=== PATIENT | female | born 1945 | race Two or more races ===

== ENCOUNTER → 2018-07-24 | Outpatient (CLI) | payer MEDICARE | END | disposition home or self-care (01) | LOC: CFH 13:34 | PROVIDERS: ATTEND Family Medicine | DX: Z12.31 Encounter for screening mammogram for malignant neoplasm of breast (principal); M81.0 Age-related osteoporosis without current pathological fracture; Z78.0 Asymptomatic menopausal state | CPT/HCPCS: 77080; 77067 ==

== ENCOUNTER 2019-01-10 13:09 | Inpatient (IN) | payer MEDICARE ==
[~2019-01-10] VITALS: Ht 167.6 cm; Wt 122.5 kg
--- NOTE | 2019-01-10 13:35 | NUR ---
PT TO ROOM FROM TRIAGE VIA WC. PRIMARY CHINESE SPEAKING, DAUGHTER AT BEDSIDE FOR PIT SUPERVISOR PER PT REQUEST. DAUGHTER RPTS PATIENT WITH INTERMITANT SLURRED SPEECH ON TUESDAY AND ALSO THIS MORNING. CHECKED FSBS =74, SHE GAVE HER SOMETHING TO EAT AND SYMPTOMS IMPROVED ALTHOUGH DAUGHTER SAID THAT SHE HAS NOTICED THAT HER MOTHER IS MORE FORGETFUL. PT C/O FACIAL NUMBNESS AND CALLIE LOWER EXT WEAKNESS. PT ALSO WITH PERIANAL ABCESS. PT ON MONITORS, VSS, PCXR COMPLETED AND PT TO CT WITH TECH TRANSPORT.
[2019-01-10] MEDS ORDERED: PLEASE ENTER ALLERGIES MC SCH (14:25)
[2019-01-10] MEDS ORDERED: CEFAZOLIN PMX 1GM/50ML 50 ML IV ONE (14:30)
[2019-01-10] MEDS ORDERED: VANCOMYCIN PER PHARMACY MC PRN ×2 (14:30→17:30)
[2019-01-10] MEDS ORDERED: CEFAZOLIN PMX 1GM/50ML 50 ML ONE (15:24)
[2019-01-10] MEDS ORDERED: VANCOMYCIN 2,000 MG in SODIUM CHLORIDE 0.9% 500 ML IV ONE (15:30)
[2019-01-10 15:35] LABS: BASOPHILS # (AUTO) 0.03 x10^3/uL (0-0.1); BASOPHILS % (AUTO) 0 % (0-1); EOSINOPHILS # (AUTO) 0.11 x10^3/uL (0-0.4); EOSINOPHILS % (AUTO) 1 % (1-7); LYMPHOCYTES % (AUTO) 14 % (22-44); MD NO; MEAN CORPUSCULAR HEMOGLOBIN 30.4 pg (27.0-34.8); MEAN CORPUSCULAR VOLUME 92.1 fL (80-100); MEAN PLATELET VOLUME 10.3 fL (7.4-10.4); MONOCYTES % (AUTO) 5 % (2-9); NEUTROPHILS # (AUTO) 11.07 x10^3/uL (1.8-6.8); NEUTROPHILS % (AUTO) 80 % (42-75); PLATELET COUNT 252 x10^3/uL (130-400); RED BLOOD COUNT 5.01 x10^6/uL (3.82-5.3); RED CELL DISTRIBUTION WIDTH 14.6 % (9.6-15.2)
[2019-01-10 15:39] LABS: INTERNATIONAL NORMALIZED RATIO 0.9 (0.93-1.1); PROTHROMBIN TIME 9.5 Seconds (9.6-11.5)
[2019-01-10 15:44] LABS: ALANINE AMINOTRANSFERASE 30 U/L (12-78); ALBUMIN 3.4 g/dL (3.4-5.0); ANION GAP 5 mmol/L (5-15); CALCIUM 9.4 mg/dL (8.5-10.1); CHLORIDE 104 mmol/L (98-107)
[2019-01-10 15:48] LABS: ALKALINE PHOSPHATASE 96 U/L (45-117); BILIRUBIN,TOTAL 0.5 mg/dL (0.2-1.0); TOTAL PROTEIN 8.4 g/dL (6.4-8.2); TROPONIN I < 0.015 ng/mL (0.000-0.045)
[2019-01-10 15:50] LABS: MICROSCOPIC NOT IND
[2019-01-10 15:56] LABS: CULTURE INDICATED? NO
--- NOTE | 2019-01-10 16:00 | NUR ---
KRISS, DAUGHTER CELL#[phone]
[2019-01-10] MEDS ORDERED: OMNIPAQUE 350 MG/ML, 100ML BOTTLE ONE (16:33)
[2019-01-10] MEDS ORDERED: MORPHINE SULFATE 4 MG/ML, 1ML ONE ×2 (16:39→21:47)
--- NOTE | 2019-01-10 16:53 | NUR ---
PT MED NOTED FOR PAIN 06/16. VSS. CALL LIGHT W/I REACH
[2019-01-10] MEDS ORDERED: morphine SULFATE 10 MG/ML, 1ML IVPush ONE (17:00)
--- NOTE | 2019-01-10 17:00 | NUR ---
PT OOB AND AMBULATED TO BATHROOM WITH DAUGHTERS STAND BY ASSIST. RTD TO ROOM W/O DIFFICULTY
[2019-01-10] MEDS ORDERED: SITA1TAB PO (17:14)
[2019-01-10] MEDS ORDERED: METO25TA35 PO (17:14)
[2019-01-10] MEDS ORDERED: UMEC1DIS PO (17:14)
[2019-01-10] MEDS ORDERED: ATOR40TA PO (17:14)
[2019-01-10] MEDS ORDERED: AMLO10TA8 PO (17:14)
[2019-01-10] MEDS ORDERED: BUPR75TA6 PO (17:14)
[2019-01-10] MEDS ORDERED: LAMO25TB7 PO (17:14)
[2019-01-10] MEDS ORDERED: CELE200C PO (17:14)
[2019-01-10] MEDS ORDERED: LISI1TAB3 PO (17:14)
[2019-01-10] MEDS ORDERED: TIZA4CAP PO (17:14)
[2019-01-10] MEDS ORDERED: ALEN70TA6 PO (17:14)
[2019-01-10] MEDS ORDERED: ESCI20TA PO (17:14)
[2019-01-10] MEDS ORDERED: INSU200I4 SC (17:18)
--- NOTE | 2019-01-10 17:18 | NUR ---
GURU, ASPEN ADMISSIONS NURSE AT BEDSIDE.
[2019-01-10] MEDS ORDERED: METO200T47 PO (17:21)
[2019-01-10] MEDS ORDERED: ACETAMINOPHEN 325 MG TABLET PO PRN (17:30)
[2019-01-10] MEDS ORDERED: BISACODYL 10 MG SUPP PR PRN (17:30)
[2019-01-10] MEDS ORDERED: DEXTROSE 4 GM TAB.CHEW PO PRN (17:30)
[2019-01-10] MEDS ORDERED: hydrALAzine 20 MG/ML, 1ML IVPush PRN (17:30)
[2019-01-10] MEDS ORDERED: LABETALOL 5MG/ML, 20ML IVPush PRN (17:30)
[2019-01-10] MEDS ORDERED: ONDANSETRON 2MG/ML, 2ML IVPush PRN (17:30)
[2019-01-10] MEDS ORDERED: DEXTROSE 50%, 50ML SYRINGE IVPush PRN (17:30)
[2019-01-10] MEDS ORDERED: LIDODERM 5% PATCH TD PRN (17:30)
[2019-01-10] MEDS ORDERED: GLUCAGON 1 MG IM PRN (17:30)
[2019-01-10] MEDS ORDERED: ONDANSETRON ODT 4 MG PO PRN (17:30)
[2019-01-10] MEDS ORDERED: TIZANIDINE 4MG TABLET PO PRN (17:30)
--- NOTE | 2019-01-10 19:08 | NUR ---
PT MEDICATED FOR 6/10 BACK PAIN. PTS DAUGHTER AT BEDSIDE.
--- NOTE | 2019-01-10 19:15 | NUR ---
BEDSIDE REPORT RECEIVED FROM CALIN ROSAS. ASSUMED CARE OF PT. PT RESTING ON GURNEY. PT JUST MEDICATED FOR PAIN. DAUGHTER AT BEDSIDE. VITALS STABLE. PT MEDICAL HOLD AT THIS TIME.
[2019-01-10] MEDS: SODIUM CHLORIDE 0.9% 1,000 ML IV SCH (19:20)
[2019-01-10] MEDS ORDERED: HEPARIN 5,000 UNITS/ML, 1ML ONE (19:27)
[2019-01-10] MEDS: AMPICILLIN/SULBACTAM 3 GM in SODIUM CHLORIDE 0.9% 100 ML IV SCH (19:57)
[2019-01-10] MEDS: HEPARIN 5,000 UNITS/ML, 1ML SQ SCH (19:58)
--- NOTE | 2019-01-10 20:02 | NUR ---
PT MEDICATED PER EMAR. 5 RIGHTS ADDRESSED. MEAL PROVIDED. VITALS STABLE. WILL CONTINUE TO MONITOR. CALL LIGHT WITHIN REACH
[2019-01-10] MEDS ORDERED: NICOTINE 14MG/24 HR PATCH.TD24 ONE (20:10)
[2019-01-10] MEDS: NICOTINE 14MG/24 HR PATCH.TD24 TD SCH (20:16)
[2019-01-10] MEDS ORDERED: ATORVASTATIN CALCIUM 40 MG PO SCH (21:00)
--- NOTE | 2019-01-10 21:06 | NUR ---
PT RESTING ON FAMILY AVEL[place] AT BEDSIDE. VITALS STABLE. ORDERED HOSPITAL BED FOR THIS PATIENT. WILL CONTINUE TO MONITOR
[2019-01-10] MEDS: MORPHINE SULFATE 4 MG/ML, 1ML IVPush PRN (21:50)
--- NOTE | 2019-01-10 21:53 | NUR ---
PT MEDICATED PER EMAR, FOR PAIN. 5 RIGHTS ADDRESSED.
--- NOTE | 2019-01-10 22:08 | NUR ---
REPORT TO CALIN DALAL
--- NOTE | 2019-01-10 22:10 | NUR ---
SBAR report received from RNEbonie.
--- NOTE | 2019-01-10 22:36 | NUR ---
FSBS 122
[2019-01-10] MEDS: SODIUM CHLORIDE FLUSH 10ML SYR IVF SCH (22:38)
[2019-01-10] MEDS: INSULIN LISPRO 100 UNITS/ML, PEN SQ-INSULIN SCH (22:41)
[2019-01-10] MEDS ORDERED: DOCUSATE 100 MG CAPSULE ONE (22:45)
--- NOTE | 2019-01-10 23:10 | NUR ---
Pt ambulated to bathroom. Family remains at bedside.
--- NOTE | 2019-01-10 23:47 | NUR ---
This RN spoke with pharmacy regarding alendronate. This medication is to be given during the day as the pt must sit up for 30 minutes after admin to reduce risk of esophageal erosion. Pt made aware of this, states that she normally takes it on Wednesdays and took it last 7 days ago. Pt states that she is ok with taking the medication tomorrow and changing her home regimen. Family at bedside is onboard with this plan and this discussion. This RN will pass the information along to the next RN.
--- NOTE | 2019-01-11 00:45 | NUR ---
Pharmacy called regarding meds that were due at 2100, med to be sent now.
--- NOTE | 2019-01-11 01:18 | NUR ---
Pt still unable to sleep. Pt moved to hospital bed with EDT. Pt medicated per JAN.
--- NOTE | 2019-01-11 01:31 | NUR ---
Telephone SBAR report called to Aye LAYTON. Pt and daughter made aware of new room assignment.
[2019-01-11] MEDS: ATORVASTATIN 40 MG TABLET PO SCH ×2 (01:43→20:52)
[2019-01-11] MEDS: DOCUSATE 100 MG CAPSULE PO SCH ×3 (01:43→20:52)
[2019-01-11] MEDS: AMPICILLIN/SULBACTAM 3 GM in SODIUM CHLORIDE 0.9% 100 ML IV SCH ×4 (01:45→21:03)
[2019-01-11] MEDS ORDERED: PHARMACOKINETIC MONITORING MC PRN (02:30)
[2019-01-11] MEDS ORDERED: ALBUTEROL SULFATE 2.5 MG/3 ML NPPB PRN (03:00)
[2019-01-11] MEDS: SODIUM CHLORIDE 0.9% 1,000 ML IV SCH ×2 (03:04→12:52)
[2019-01-11] MEDS: HEPARIN 5,000 UNITS/ML, 1ML SQ SCH ×3 (03:05→19:48)
[2019-01-11 05:50] VITALS: BP 132/70
[2019-01-11] MEDS: METOPROLOL SUCCINATE 25 MG TAB.ER.24H PO SCH (05:52)
[2019-01-11 06:22] LABS: ANION GAP 7 mmol/L (5-15); CHLORIDE 106 mmol/L (98-107)
[2019-01-11 06:23] LABS: BASOPHILS # (AUTO) 0.04 x10^3/uL (0-0.1); BASOPHILS % (AUTO) 0 % (0-1); EOSINOPHILS # (AUTO) 0.07 x10^3/uL (0-0.4); EOSINOPHILS % (AUTO) 1 % (1-7); LYMPHOCYTES # (AUTO) 2.06 x10^3/uL (1-3.4); LYMPHOCYTES % (AUTO) 15 % (22-44); MD NO; MEAN CORPUSCULAR HEMOGLOBIN 30.5 pg (27.0-34.8); MEAN CORPUSCULAR HGB CONC 33.1 g/dL (32.4-35.8); MEAN CORPUSCULAR VOLUME 92.2 fL (80-100); MEAN PLATELET VOLUME 10.2 fL (7.4-10.4); MONOCYTES # (AUTO) 0.69 x10^3/uL (0.2-0.8); MONOCYTES % (AUTO) 5 % (2-9); NEUTROPHILS # (AUTO) 10.71 x10^3/uL (1.8-6.8); NEUTROPHILS % (AUTO) 79 % (42-75); PLATELET COUNT 198 x10^3/uL (130-400); RED BLOOD COUNT 4.31 x10^6/uL (3.82-5.3); RED CELL DISTRIBUTION WIDTH 14.1 % (9.6-15.2)
[2019-01-11 06:24] LABS: CREATININE 0.82 mg/dL (0.55-1.02)
[2019-01-11] MEDS ORDERED: ALENDRONATE 70 MG TABLET PO SCH (06:30)
[2019-01-11 06:47] LABS: HEMOGLOBIN A1C 8.2 % (4.2-6.3)
[2019-01-11] MEDS: INSULIN LISPRO 100 UNITS/ML, PEN SQ-INSULIN SCH ×4 (07:00→22:33)
[2019-01-11 08:00] VITALS: BP 146/71
[2019-01-11] MEDS: POLYETHYLENE GLYCOL 17 GM PACKET PO SCH (08:07)
[2019-01-11] MEDS: ESCITALOPRAM 10MG TABLET PO SCH (08:07)
[2019-01-11] MEDS: SODIUM CHLORIDE FLUSH 10ML SYR IVF SCH ×2 (08:08→20:52)
[2019-01-11] MEDS: AMLODIPINE 10 MG TAB PO SCH (08:08)
[2019-01-11] MEDS: BUPROPION 75 MG TABLET PO SCH (08:09)
[2019-01-11] MEDS: LAMOTRIGINE 25 MG TABLET PO SCH (08:09)
[2019-01-11] MEDS: MORPHINE SULFATE 4 MG/ML, 1ML IVPush PRN (08:32)
[2019-01-11] MEDS: Umeclidinium Brm/Vilanterol Tr (Anoro Ellipta 62.5-25 Mcg MC SCH (08:32)
[2019-01-11 14:00] VITALS: BP 109/60
[2019-01-11] MEDS ORDERED: VANCOMYCIN 2,000 MG in SODIUM CHLORIDE 0.9% 500 ML IV SCH (15:00)
[2019-01-11] MEDS: NICOTINE 14MG/24 HR PATCH.TD24 TD SCH (17:53)
[2019-01-11 19:20] VITALS: BP 129/71
[2019-01-11] MEDS ORDERED: MAGNESIUM CITRATE 300ML ORAL SOL PO PRN (20:30)
[2019-01-12] MEDS: AMPICILLIN/SULBACTAM 3 GM in SODIUM CHLORIDE 0.9% 100 ML IV SCH ×3 (03:23→15:00)
[2019-01-12 03:24] VITALS: BP 143/72
[2019-01-12] MEDS: HEPARIN 5,000 UNITS/ML, 1ML SQ SCH ×2 (03:24→11:30)
[2019-01-12 05:24] LABS: BASOPHILS # (AUTO) 0.04 x10^3/uL (0-0.1); BASOPHILS % (AUTO) 0 % (0-1); EOSINOPHILS # (AUTO) 0.13 x10^3/uL (0-0.4); EOSINOPHILS % (AUTO) 1 % (1-7); LYMPHOCYTES % (AUTO) 13 % (22-44); MD NO; MEAN CORPUSCULAR HGB CONC 33.3 g/dL (32.4-35.8); MEAN CORPUSCULAR VOLUME 93.2 fL (80-100); MEAN PLATELET VOLUME 9.8 fL (7.4-10.4); MONOCYTES # (AUTO) 0.64 x10^3/uL (0.2-0.8); MONOCYTES % (AUTO) 5 % (2-9); NEUTROPHILS # (AUTO) 9.77 x10^3/uL (1.8-6.8); NEUTROPHILS % (AUTO) 80 % (42-75); PLATELET COUNT 189 x10^3/uL (130-400); RED BLOOD COUNT 4.02 x10^6/uL (3.82-5.3)
[2019-01-12 05:41] LABS: ANION GAP 4 mmol/L (5-15); CALCIUM 7.7 mg/dL (8.5-10.1); CHLORIDE 107 mmol/L (98-107); CREATININE 0.84 mg/dL (0.55-1.02)
[2019-01-12] MEDS: METOPROLOL SUCCINATE 25 MG TAB.ER.24H PO SCH (06:05)
[2019-01-12 06:31] VITALS: BP 130/71
[2019-01-12] MEDS: INSULIN LISPRO 100 UNITS/ML, PEN SQ-INSULIN SCH ×2 (07:00→11:36)
[2019-01-12] MEDS: SODIUM CHLORIDE FLUSH 10ML SYR IVF SCH (08:28)
[2019-01-12] MEDS: POLYETHYLENE GLYCOL 17 GM PACKET PO SCH (08:28)
[2019-01-12] MEDS: SODIUM CHLORIDE 0.9% 1,000 ML IV SCH (08:28)
[2019-01-12] MEDS: DOCUSATE 100 MG CAPSULE PO SCH (08:29)
[2019-01-12] MEDS: AMLODIPINE 10 MG TAB PO SCH (08:29)
[2019-01-12] MEDS: LAMOTRIGINE 25 MG TABLET PO SCH (08:29)
[2019-01-12] MEDS: ESCITALOPRAM 10MG TABLET PO SCH (08:29)
[2019-01-12] MEDS: BUPROPION 75 MG TABLET PO SCH (08:29)
[2019-01-12] MEDS: Umeclidinium Brm/Vilanterol Tr (Anoro Ellipta 62.5-25 Mcg MC SCH (09:00)
[2019-01-12 13:27] VITALS: BP 122/72
[2019-01-12] MEDS ORDERED: SULF1TAB24 PO (13:53)
[2019-01-12] MEDS ORDERED: DOXY100T10 PO (13:53)
== END 2019-01-12 15:55 | disposition home health service (06) | DRG 602 ==
LOC: ED 16:39 → EDIP 16:49 → 3NW 01-11 02:06 → DCLOUNGE 01-12 15:41
PROVIDERS: ADMIT Internal Medicine; ATTEND Internal Medicine
PROC: 0T9B70Z Drainage of Bladder with Drainage Device, Via Natural or Artificial Opening (ICD-10-PCS; principal; 2019-01-10)
DX: L03.317 Cellulitis of buttock (principal); G92 Toxic encephalopathy; Z68.41 Body mass index [BMI] 40.0-44.9, adult; E86.0 Dehydration; R27.0 Ataxia, unspecified; I10 Essential (primary) hypertension; E11.649 Type 2 diabetes mellitus with hypoglycemia without coma; Z66 Do not resuscitate; F17.210 Nicotine dependence, cigarettes, uncomplicated; E78.5 Hyperlipidemia, unspecified; J44.9 Chronic obstructive pulmonary disease, unspecified; K59.09 Other constipation; E66.01 Morbid (severe) obesity due to excess calories; I95.9 Hypotension, unspecified; Z90.710 Acquired absence of both cervix and uterus; Z82.3 Family history of stroke; Z82.49 Family history of ischemic heart disease and other diseases of the circulatory system
CPT/HCPCS: 36415; 70450; 70496; 71045; 80048; 80053; 81003; 82962; 83036; 83605; 84484; 85025; 85610; 85730; 87040; 87070; 87077; 87186; 87205; 93005; 96365; 96375; G0378; J0295; J0690; J1644; J3370; Q9967; J1815; J2270; J7030; J7040

== ENCOUNTER 2019-01-18 20:08 | Inpatient (IN) | payer MEDICARE ==
[~2019-01-18] VITALS: Ht 167.6 cm; Wt 110.3 kg
[~2019-01-18 20:08] MED LIST: ALEN70TA6 PO; AMLO10TA8 PO; ATOR40TA PO; BUPR75TA6 PO; CELE200C PO; DOXY100T10 PO; ESCI20TA PO; INSU200I4 SC; LAMO25TB7 PO; LISI1TAB3 PO; METO200T47 PO; METO25TA35 PO; SITA1TAB PO; SULF1TAB24 PO; TIZA4CAP PO; UMEC1DIS PO
[2019-01-18 20:36] LABS: MEAN CORPUSCULAR HEMOGLOBIN 30.2 pg (27.0-34.8); MEAN CORPUSCULAR HGB CONC 32.5 g/dL (32.4-35.8); MEAN CORPUSCULAR VOLUME 92.7 fL (80-100); MEAN PLATELET VOLUME 8.7 fL (7.4-10.4); PLATELET COUNT 334 x10^3/uL (130-400); RED CELL DISTRIBUTION WIDTH 13.8 % (9.6-15.2)
[2019-01-18 20:44] LABS: ALBUMIN 3.1 g/dL (3.4-5.0); ANION GAP 6 mmol/L (5-15); CALCIUM 9.2 mg/dL (8.5-10.1); CHLORIDE 100 mmol/L (98-107)
[2019-01-18 20:47] LABS: ALANINE AMINOTRANSFERASE 28 U/L (12-78); ALKALINE PHOSPHATASE 101 U/L (45-117); BILIRUBIN,TOTAL 0.7 mg/dL (0.2-1.0); CREATININE 1.18 mg/dL (0.55-1.02); TOTAL PROTEIN 7.7 g/dL (6.4-8.2)
--- NOTE | 2019-01-18 20:59 | NUR ---
Pt reports chronic wound to buttock, DC'd from here approx 6 days for same complaint, on ABX, reports worsening of infection. Family at bedside.
[2019-01-18 21:21] LABS: MD YES
[2019-01-18 21:25] LABS: BAND#(MANUAL) 0.12 x10^3/uL; BANDS%(MANUAL) 1 % (0-7); LYMPH#(MANUAL) 3.08 x10^3/uL (1-3.4); LYMPHS% (MANUAL) 25 % (22-44); MONOS#(MANUAL) 0.62 x10^3/uL (0.3-2.7); MONOS% (MANUAL) 5 % (2-9); SEG#(MANUAL) 8.49 x10^3/uL (1.8-6.8); SEGS% (MANUAL) 69 % (42-75)
[2019-01-18 21:26] LABS: <PLATELET ESTIMATE> ADEQUATE; <PLT MORPHOLOGY> NORMAL PLT MORPH; <RBC MORPHOLOGY> NORMAL
--- NOTE | 2019-01-18 21:28 | NUR ---
Awaiting CT results, family remains at bedside.
--- NOTE | 2019-01-18 21:56 | NUR ---
Pt to CT
[2019-01-18] MEDS ORDERED: OMNIPAQUE 350 MG/ML, 100ML BOTTLE ONE (22:09)
[2019-01-18] MEDS ORDERED: VANCOMYCIN 2,000 MG in SODIUM CHLORIDE 0.9% 500 ML IV ONE (22:54)
[2019-01-18] MEDS ORDERED: ONDANSETRON 2MG/ML, 2ML IVPush ONE (23:00)
[2019-01-18] MEDS ORDERED: PIPERACILLIN/TAZO/PMX 3.375GM 50 ML IVPB ONE (23:00)
[2019-01-18] MEDS ORDERED: MORPHINE SULFATE 4 MG/ML, 1ML IVPush PRN ×2 (23:00)
[2019-01-18] MEDS ORDERED: VANCOMYCIN PER PHARMACY IV ONE (23:00)
[2019-01-18] MEDS ORDERED: PIPERACILLIN/TAZO/PMX 3.375GM 50 ML ONE (23:10)
--- NOTE | 2019-01-18 23:16 | NUR ---
Report to floor RN, abx infusing to floor
[2019-01-19] MEDS ORDERED: hydrALAzine 20 MG/ML, 1ML IVPush PRN
[2019-01-19] MEDS ORDERED: VANCOMYCIN PER PHARMACY MC PRN
[2019-01-19] MEDS: ACETAMINOPHEN 325 MG TABLET PO PRN (00:02)
[2019-01-19 00:56] VITALS: BP 160/56
[2019-01-19] MEDS: AMPICILLIN/SULBACTAM 3 GM in SODIUM CHLORIDE 0.9% 100 ML IV SCH ×4 (02:29→20:35)
[2019-01-19 02:34] VITALS: BP 123/65
[2019-01-19 04:47] LABS: BASOPHILS # (AUTO) 0.04 x10^3/uL (0-0.1); BASOPHILS % (AUTO) 0 % (0-1); EOSINOPHILS % (AUTO) 2 % (1-7); LYMPHOCYTES % (AUTO) 22 % (22-44); MD NO; MEAN CORPUSCULAR HEMOGLOBIN 30.4 pg (27.0-34.8); MEAN CORPUSCULAR HGB CONC 32.8 g/dL (32.4-35.8); MEAN CORPUSCULAR VOLUME 92.7 fL (80-100); MEAN PLATELET VOLUME 8.6 fL (7.4-10.4); MONOCYTES # (AUTO) 0.68 x10^3/uL (0.2-0.8); MONOCYTES % (AUTO) 7 % (2-9); NEUTROPHILS # (AUTO) 7.25 x10^3/uL (1.8-6.8); NEUTROPHILS % (AUTO) 69 % (42-75); PLATELET COUNT 322 x10^3/uL (130-400); RED BLOOD COUNT 4.08 x10^6/uL (3.82-5.3); RED CELL DISTRIBUTION WIDTH 13.8 % (9.6-15.2)
[2019-01-19 04:58] LABS: ANION GAP 5 mmol/L (5-15); CALCIUM 8.6 mg/dL (8.5-10.1); CHLORIDE 106 mmol/L (98-107); CREATININE 0.97 mg/dL (0.55-1.02)
[2019-01-19] MEDS: ALENDRONATE 70 MG TABLET PO SCH ×3 (05:44→08:40)
[2019-01-19] MEDS ORDERED: PHARMACOKINETIC MONITORING MC PRN (06:00)
[2019-01-19] MEDS: ALBUTEROL/IPRATROPIUM 2.5MG/0.5MG, 3 ML NPPB SCH ×4 (06:00→21:00)
[2019-01-19] MEDS ORDERED: PHARMACOKINETIC CONSULTATION MC ONE (06:00)
[2019-01-19] MEDS: INSULIN LISPRO 100 UNITS/ML, PEN SQ-INSULIN SCH ×4 (07:00→20:36)
[2019-01-19 08:13] VITALS: BP 116/64
[2019-01-19] MEDS: METOPROLOL SUCCINATE 25 MG TAB.ER.24H PO SCH (08:23)
[2019-01-19] MEDS: HYDROCHLOROTHIAZIDE 12.5 MG CAPSULE PO SCH (08:24)
[2019-01-19] MEDS: LAMOTRIGINE 25 MG TABLET PO SCH (08:24)
[2019-01-19] MEDS: AMLODIPINE 10 MG TAB PO SCH (08:24)
[2019-01-19] MEDS: BUPROPION 75 MG TABLET PO SCH (08:25)
[2019-01-19] MEDS: LISINOPRIL 10 MG TABLET PO SCH (08:25)
[2019-01-19] MEDS: ENOXAPARIN 40 MG/0.4 ML SQ SCH (08:26)
[2019-01-19] MEDS: TEMPLATE NON-FORMULARY MED. (Escitalopram Oxalate** 20 MG) HOMEMEDPO SCH (08:28)
[2019-01-19] MEDS: TIZANIDINE 4MG TABLET PO SCH (08:30)
[2019-01-19 14:18] VITALS: BP 108/64
[2019-01-19] MEDS ORDERED: MAGNESIUM HYDROXIDE 8%, 30ML UDC ONE (14:24)
[2019-01-19] MEDS: MAGNESIUM HYDROXIDE 8%, 30ML UDC PO PRN (16:13)
[2019-01-19 20:09] VITALS: BP 118/62
[2019-01-19] MEDS: ATORVASTATIN 40 MG TABLET PO SCH (20:35)
[2019-01-20] MEDS ORDERED: VANCOMYCIN 2,000 MG in SODIUM CHLORIDE 0.9% 500 ML IV SCH
[2019-01-20 01:02] VITALS: BP 127/63
[2019-01-20] MEDS: AMPICILLIN/SULBACTAM 3 GM in SODIUM CHLORIDE 0.9% 100 ML IV SCH ×4 (02:25→21:06)
[2019-01-20] MEDS: ALBUTEROL/IPRATROPIUM 2.5MG/0.5MG, 3 ML NPPB SCH (06:00)
[2019-01-20] MEDS: INSULIN LISPRO 100 UNITS/ML, PEN SQ-INSULIN SCH ×5 (07:00→20:51)
[2019-01-20 07:50] VITALS: BP 134/68
[2019-01-20] MEDS: TEMPLATE NON-FORMULARY MED. (Escitalopram Oxalate** 20 MG) HOMEMEDPO SCH (09:00)
[2019-01-20] MEDS: AMLODIPINE 10 MG TAB PO SCH (09:17)
[2019-01-20] MEDS: ENOXAPARIN 40 MG/0.4 ML SQ SCH (09:17)
[2019-01-20] MEDS: HYDROCHLOROTHIAZIDE 12.5 MG CAPSULE PO SCH (09:18)
[2019-01-20] MEDS: SENNA/DOCUSATE TABLET PO SCH (09:18)
[2019-01-20] MEDS: LAMOTRIGINE 25 MG TABLET PO SCH (09:18)
[2019-01-20] MEDS: METOPROLOL SUCCINATE 25 MG TAB.ER.24H PO SCH (09:18)
[2019-01-20] MEDS: LISINOPRIL 10 MG TABLET PO SCH (09:19)
[2019-01-20] MEDS: TIZANIDINE 4MG TABLET PO SCH (09:19)
[2019-01-20] MEDS: BUPROPION 75 MG TABLET PO SCH (09:19)
[2019-01-20] MEDS: DAPTOMYCIN 600 MG in SODIUM CHLORIDE 0.9% 100 ML IV SCH (13:08)
[2019-01-20 13:59] VITALS: BP 106/57
[2019-01-20] MEDS ORDERED: FENTANYL PF 250 MCG/5ML ONE (15:30)
[2019-01-20] MEDS ORDERED: PROPOFOL 10 MG/ML, 20ML ONE ×2 (15:30→16:10)
[2019-01-20] MEDS ORDERED: SUCCINYLCHOLINE 20 MG/ML, 10ML ONE ×2 (15:30→16:10)
[2019-01-20] MEDS ORDERED: OXYcodone 5 MG/5 ML ORAL.SOL UDC PO PRN (16:00)
[2019-01-20] MEDS ORDERED: PROMETHAZINE 25 MG/ML, 1ML IV PRN (16:00)
[2019-01-20] MEDS ORDERED: ONDANSETRON 2MG/ML, 2ML IV PRN (16:00)
[2019-01-20] MEDS ORDERED: hydrALAzine 20 MG/ML, 1ML IV PRN (16:00)
[2019-01-20] MEDS ORDERED: HYDROmorphone 2 MG/ML, 1ML IVPush PRN (16:00)
[2019-01-20] MEDS ORDERED: ROCURONIUM 10MG/ML,5ML ONE (16:00)
[2019-01-20] MEDS ORDERED: LABETALOL 5MG/ML, 20ML IV PRN (16:00)
[2019-01-20] MEDS ORDERED: ACETAMINOPHEN 325 MG TABLET PO PRN (16:00)
[2019-01-20] MEDS ORDERED: METOCLOPRAMIDE 5 MG/ML, 2ML ONE (16:28)
[2019-01-20] MEDS ORDERED: ONDANSETRON 2MG/ML, 2ML ONE (16:28)
[2019-01-20] MEDS ORDERED: OXYcodone 5 MG/5 ML ORAL.SOL UDC ONE (17:07)
[2019-01-20] MEDS ORDERED: FENTANYL PF 100 MCG/2ML ONE (17:07)
[2019-01-20] MEDS: FENTANYL PF 100 MCG/2ML IV PRN ×3 (17:10→17:20)
[2019-01-20] MEDS ORDERED: MEPERIDINE/PF 25MG/ML,1ML ONE (17:15)
[2019-01-20 18:00] VITALS: BP 125/77
[2019-01-20] MEDS ORDERED: MEPERIDINE/PF 25MG/0.5ML IVPush PRN (18:00)
[2019-01-20 19:53] VITALS: BP 117/69
[2019-01-20] MEDS: OXYcodone/APAP 5/325MG TABLET PO PRN (20:50)
[2019-01-20] MEDS: ATORVASTATIN 40 MG TABLET PO SCH (20:50)
[2019-01-21 01:10] VITALS: BP 117/67
[2019-01-21] MEDS: AMPICILLIN/SULBACTAM 3 GM in SODIUM CHLORIDE 0.9% 100 ML IV SCH ×4 (03:25→21:52)
[2019-01-21] MEDS: OXYcodone/APAP 5/325MG TABLET PO PRN ×3 (03:25→20:15)
[2019-01-21 04:34] LABS: BASOPHILS # (AUTO) 0.02 x10^3/uL (0-0.1); BASOPHILS % (AUTO) 0 % (0-1); EOSINOPHILS # (AUTO) 0.21 x10^3/uL (0-0.4); EOSINOPHILS % (AUTO) 2 % (1-7); LYMPHOCYTES # (AUTO) 2.72 x10^3/uL (1-3.4); LYMPHOCYTES % (AUTO) 31 % (22-44); MD NO; MEAN CORPUSCULAR VOLUME 93.7 fL (80-100); MEAN PLATELET VOLUME 8.6 fL (7.4-10.4); MONOCYTES # (AUTO) 0.43 x10^3/uL (0.2-0.8); MONOCYTES % (AUTO) 5 % (2-9); NEUTROPHILS # (AUTO) 5.55 x10^3/uL (1.8-6.8); NEUTROPHILS % (AUTO) 62 % (42-75); PLATELET COUNT 312 x10^3/uL (130-400); RED BLOOD COUNT 3.66 x10^6/uL (3.82-5.3); RED CELL DISTRIBUTION WIDTH 14.3 % (9.6-15.2)
[2019-01-21 04:45] LABS: ANION GAP 2 mmol/L (5-15); CALCIUM 7.7 mg/dL (8.5-10.1); CHLORIDE 108 mmol/L (98-107); CREATININE 0.99 mg/dL (0.55-1.02)
[2019-01-21] MEDS: INSULIN LISPRO 100 UNITS/ML, PEN SQ-INSULIN SCH ×4 (07:00→20:26)
[2019-01-21 07:30] VITALS: BP 115/65
[2019-01-21] MEDS: SENNA/DOCUSATE TABLET PO SCH (08:19)
[2019-01-21] MEDS: LAMOTRIGINE 25 MG TABLET PO SCH (08:19)
[2019-01-21] MEDS: LISINOPRIL 10 MG TABLET PO SCH (08:20)
[2019-01-21] MEDS: METOPROLOL SUCCINATE 25 MG TAB.ER.24H PO SCH (08:20)
[2019-01-21] MEDS: HYDROCHLOROTHIAZIDE 12.5 MG CAPSULE PO SCH (08:20)
[2019-01-21] MEDS: TIZANIDINE 4MG TABLET PO SCH (08:20)
[2019-01-21] MEDS: BUPROPION 75 MG TABLET PO SCH (08:20)
[2019-01-21] MEDS: TEMPLATE NON-FORMULARY MED. (Escitalopram Oxalate** 20 MG) HOMEMEDPO SCH (08:21)
[2019-01-21] MEDS: AMLODIPINE 10 MG TAB PO SCH (08:21)
[2019-01-21] MEDS: DAPTOMYCIN 600 MG in SODIUM CHLORIDE 0.9% 100 ML IV SCH (13:47)
[2019-01-21 14:00] VITALS: BP 111/63
[2019-01-21 21:01] VITALS: BP 144/71
[2019-01-22] MEDS: OXYcodone/APAP 5/325MG TABLET PO PRN ×4 (00:02→20:40)
[2019-01-22 02:01] VITALS: BP 126/88
[2019-01-22] MEDS ORDERED: SITA1TAB5 PO (02:58)
[2019-01-22] MEDS: AMPICILLIN/SULBACTAM 3 GM in SODIUM CHLORIDE 0.9% 100 ML IV SCH ×4 (03:03→20:35)
[2019-01-22 04:31] LABS: BASOPHILS # (AUTO) 0.09 x10^3/uL (0-0.1); BASOPHILS % (AUTO) 1 % (0-1); EOSINOPHILS % (AUTO) 2 % (1-7); LYMPHOCYTES # (AUTO) 2.65 x10^3/uL (1-3.4); LYMPHOCYTES % (AUTO) 26 % (22-44); MD NO; MEAN CORPUSCULAR HEMOGLOBIN 31.2 pg (27.0-34.8); MEAN CORPUSCULAR HGB CONC 33.4 g/dL (32.4-35.8); MEAN CORPUSCULAR VOLUME 93.2 fL (80-100); MEAN PLATELET VOLUME 8.2 fL (7.4-10.4); MONOCYTES # (AUTO) 0.52 x10^3/uL (0.2-0.8); MONOCYTES % (AUTO) 5 % (2-9); NEUTROPHILS # (AUTO) 6.57 x10^3/uL (1.8-6.8); NEUTROPHILS % (AUTO) 66 % (42-75); PLATELET COUNT 302 x10^3/uL (130-400); RED BLOOD COUNT 3.51 x10^6/uL (3.82-5.3)
[2019-01-22 04:45] LABS: ANION GAP 4 mmol/L (5-15); CALCIUM 7.8 mg/dL (8.5-10.1); CHLORIDE 109 mmol/L (98-107); CREATININE 1.02 mg/dL (0.55-1.02)
[2019-01-22 07:55] VITALS: BP 134/75
[2019-01-22] MEDS: TEMPLATE NON-FORMULARY MED. (Escitalopram Oxalate** 20 MG) HOMEMEDPO SCH (08:17)
[2019-01-22] MEDS: SENNA/DOCUSATE TABLET PO SCH (08:18)
[2019-01-22] MEDS: LISINOPRIL 10 MG TABLET PO SCH (08:18)
[2019-01-22] MEDS: INSULIN LISPRO 100 UNITS/ML, PEN SQ-INSULIN SCH ×4 (08:18→20:36)
[2019-01-22] MEDS: BUPROPION 75 MG TABLET PO SCH (08:19)
[2019-01-22] MEDS: TIZANIDINE 4MG TABLET PO SCH (08:19)
[2019-01-22] MEDS: AMLODIPINE 10 MG TAB PO SCH (08:19)
[2019-01-22] MEDS: LAMOTRIGINE 25 MG TABLET PO SCH (08:19)
[2019-01-22] MEDS: METOPROLOL SUCCINATE 25 MG TAB.ER.24H PO SCH (08:19)
[2019-01-22] MEDS: HYDROCHLOROTHIAZIDE 12.5 MG CAPSULE PO SCH (08:19)
[2019-01-22] MEDS: ENOXAPARIN 40 MG/0.4 ML SQ SCH (12:21)
[2019-01-22] MEDS: DAPTOMYCIN 600 MG in SODIUM CHLORIDE 0.9% 100 ML IV SCH (12:22)
[2019-01-22 14:09] VITALS: BP 99/56
[2019-01-22 20:07] VITALS: BP 167/81
[2019-01-23] MEDS: AMPICILLIN/SULBACTAM 3 GM in SODIUM CHLORIDE 0.9% 100 ML IV SCH ×4 (02:37→23:48)
[2019-01-23 05:19] VITALS: BP 146/57
[2019-01-23] MEDS: OXYcodone/APAP 5/325MG TABLET PO PRN ×3 (05:35→20:34)
[2019-01-23 06:17] LABS: BASOPHILS # (AUTO) 0.01 x10^3/uL (0-0.1); BASOPHILS % (AUTO) 0 % (0-1); EOSINOPHILS # (AUTO) 0.21 x10^3/uL (0-0.4); EOSINOPHILS % (AUTO) 2 % (1-7); LYMPHOCYTES # (AUTO) 2.09 x10^3/uL (1-3.4); LYMPHOCYTES % (AUTO) 18 % (22-44); MD NO; MEAN CORPUSCULAR HGB CONC 33.3 g/dL (32.4-35.8); MEAN CORPUSCULAR VOLUME 93.1 fL (80-100); MEAN PLATELET VOLUME 8.3 fL (7.4-10.4); MONOCYTES # (AUTO) 0.28 x10^3/uL (0.2-0.8); MONOCYTES % (AUTO) 2 % (2-9); NEUTROPHILS # (AUTO) 9.18 x10^3/uL (1.8-6.8); NEUTROPHILS % (AUTO) 78 % (42-75); PLATELET COUNT 315 x10^3/uL (130-400); RED BLOOD COUNT 3.44 x10^6/uL (3.82-5.3); RED CELL DISTRIBUTION WIDTH 13.9 % (9.6-15.2)
[2019-01-23 06:26] LABS: ANION GAP 4 mmol/L (5-15); CHLORIDE 109 mmol/L (98-107); CREATININE 0.85 mg/dL (0.55-1.02)
[2019-01-23] MEDS: INSULIN LISPRO 100 UNITS/ML, PEN SQ-INSULIN SCH ×4 (07:00→20:43)
[2019-01-23 07:46] VITALS: BP 120/67
[2019-01-23] MEDS: AMLODIPINE 10 MG TAB PO SCH (09:01)
[2019-01-23] MEDS: LISINOPRIL 10 MG TABLET PO SCH (09:02)
[2019-01-23] MEDS: SENNA/DOCUSATE TABLET PO SCH (09:02)
[2019-01-23] MEDS: LAMOTRIGINE 25 MG TABLET PO SCH (09:02)
[2019-01-23] MEDS: HYDROCHLOROTHIAZIDE 12.5 MG CAPSULE PO SCH (09:02)
[2019-01-23] MEDS: METOPROLOL SUCCINATE 25 MG TAB.ER.24H PO SCH (09:03)
[2019-01-23] MEDS: BUPROPION 75 MG TABLET PO SCH (09:03)
[2019-01-23] MEDS: TEMPLATE NON-FORMULARY MED. (Escitalopram Oxalate** 20 MG) HOMEMEDPO SCH (09:03)
[2019-01-23] MEDS: TIZANIDINE 4MG TABLET PO SCH (09:03)
[2019-01-23] MEDS: ENOXAPARIN 40 MG/0.4 ML SQ SCH (11:50)
[2019-01-23] MEDS: DAPTOMYCIN 600 MG in SODIUM CHLORIDE 0.9% 100 ML IV SCH (12:30)
[2019-01-23 13:52] VITALS: BP 128/71
[2019-01-23 20:05] VITALS: BP 145/70
[2019-01-23] MEDS ORDERED: BISACODYL 10 MG SUPP PR PRN (22:00)
[2019-01-24 00:06] VITALS: BP 148/71
[2019-01-24] MEDS: OXYcodone/APAP 5/325MG TABLET PO PRN ×5 (00:32→21:09)
[2019-01-24] MEDS: AMPICILLIN/SULBACTAM 3 GM in SODIUM CHLORIDE 0.9% 100 ML IV SCH ×4 (04:55→23:06)
[2019-01-24 05:50] LABS: BASOPHILS # (AUTO) 0.03 x10^3/uL (0-0.1); BASOPHILS % (AUTO) 0 % (0-1); EOSINOPHILS # (AUTO) 0.34 x10^3/uL (0-0.4); EOSINOPHILS % (AUTO) 4 % (1-7); LYMPHOCYTES # (AUTO) 2.59 x10^3/uL (1-3.4); LYMPHOCYTES % (AUTO) 27 % (22-44); MD NO; MEAN CORPUSCULAR HEMOGLOBIN 31.3 pg (27.0-34.8); MEAN CORPUSCULAR HGB CONC 33.5 g/dL (32.4-35.8); MEAN CORPUSCULAR VOLUME 93.5 fL (80-100); MEAN PLATELET VOLUME 8.7 fL (7.4-10.4); MONOCYTES # (AUTO) 0.53 x10^3/uL (0.2-0.8); MONOCYTES % (AUTO) 6 % (2-9); NEUTROPHILS # (AUTO) 6.11 x10^3/uL (1.8-6.8); NEUTROPHILS % (AUTO) 64 % (42-75); PLATELET COUNT 307 x10^3/uL (130-400); RED BLOOD COUNT 3.41 x10^6/uL (3.82-5.3); RED CELL DISTRIBUTION WIDTH 14.3 % (9.6-15.2)
[2019-01-24 06:03] LABS: CHLORIDE 109 mmol/L (98-107)
[2019-01-24 06:10] LABS: ANION GAP 4 mmol/L (5-15); CALCIUM 8.2 mg/dL (8.5-10.1); CREATININE 0.77 mg/dL (0.55-1.02)
[2019-01-24 06:57] VITALS: BP 133/89
[2019-01-24] MEDS: INSULIN LISPRO 100 UNITS/ML, PEN SQ-INSULIN SCH ×4 (07:03→19:26)
[2019-01-24] MEDS: SENNA/DOCUSATE TABLET PO SCH (07:56)
[2019-01-24] MEDS: BUPROPION 75 MG TABLET PO SCH (07:56)
[2019-01-24] MEDS: AMLODIPINE 10 MG TAB PO SCH (07:56)
[2019-01-24] MEDS: HYDROCHLOROTHIAZIDE 12.5 MG CAPSULE PO SCH (07:56)
[2019-01-24] MEDS: LISINOPRIL 10 MG TABLET PO SCH (07:57)
[2019-01-24] MEDS: LAMOTRIGINE 25 MG TABLET PO SCH (07:57)
[2019-01-24] MEDS: TIZANIDINE 4MG TABLET PO SCH (07:57)
[2019-01-24] MEDS: TEMPLATE NON-FORMULARY MED. (Escitalopram Oxalate** 20 MG) HOMEMEDPO SCH (07:59)
[2019-01-24] MEDS: METOPROLOL SUCCINATE 25 MG TAB.ER.24H PO SCH (07:59)
[2019-01-24] MEDS: DAPTOMYCIN 600 MG in SODIUM CHLORIDE 0.9% 100 ML IV SCH (12:03)
[2019-01-24] MEDS: ENOXAPARIN 40 MG/0.4 ML SQ SCH (12:07)
[2019-01-24 14:28] VITALS: BP 110/68
[2019-01-24] MEDS: MAGNESIUM HYDROXIDE 8%, 30ML UDC PO PRN (16:39)
[2019-01-24 18:33] VITALS: BP 116/64
[2019-01-25 01:20] VITALS: BP 144/77
[2019-01-25] MEDS: AMPICILLIN/SULBACTAM 3 GM in SODIUM CHLORIDE 0.9% 100 ML IV SCH ×4 (04:21→22:58)
[2019-01-25 04:43] LABS: BASOPHILS # (AUTO) 0.03 x10^3/uL (0-0.1); BASOPHILS % (AUTO) 0 % (0-1); EOSINOPHILS # (AUTO) 0.18 x10^3/uL (0-0.4); EOSINOPHILS % (AUTO) 2 % (1-7); LYMPHOCYTES # (AUTO) 2.55 x10^3/uL (1-3.4); LYMPHOCYTES % (AUTO) 29 % (22-44); MD NO; MEAN CORPUSCULAR HEMOGLOBIN 31.3 pg (27.0-34.8); MEAN CORPUSCULAR HGB CONC 33.5 g/dL (32.4-35.8); MEAN CORPUSCULAR VOLUME 93.3 fL (80-100); MEAN PLATELET VOLUME 8.2 fL (7.4-10.4); MONOCYTES # (AUTO) 0.45 x10^3/uL (0.2-0.8); MONOCYTES % (AUTO) 5 % (2-9); NEUTROPHILS # (AUTO) 5.69 x10^3/uL (1.8-6.8); NEUTROPHILS % (AUTO) 64 % (42-75); PLATELET COUNT 346 x10^3/uL (130-400); RED CELL DISTRIBUTION WIDTH 14.3 % (9.6-15.2)
[2019-01-25 04:55] LABS: ANION GAP 5 mmol/L (5-15); CHLORIDE 108 mmol/L (98-107)
[2019-01-25 04:57] LABS: CREATININE 0.78 mg/dL (0.55-1.02)
[2019-01-25 05:17] LABS: HCT (SEDRATE) 31.7 % (34.6-47.8)
[2019-01-25 06:35] VITALS: BP 146/78
[2019-01-25] MEDS: INSULIN LISPRO 100 UNITS/ML, PEN SQ-INSULIN SCH ×4 (07:00→19:57)
[2019-01-25] MEDS: SENNA/DOCUSATE TABLET PO SCH (08:48)
[2019-01-25] MEDS: TIZANIDINE 4MG TABLET PO SCH (08:49)
[2019-01-25] MEDS: METOPROLOL SUCCINATE 25 MG TAB.ER.24H PO SCH (08:49)
[2019-01-25] MEDS: LAMOTRIGINE 25 MG TABLET PO SCH (08:49)
[2019-01-25] MEDS: BUPROPION 75 MG TABLET PO SCH (08:50)
[2019-01-25] MEDS: AMLODIPINE 10 MG TAB PO SCH (08:50)
[2019-01-25] MEDS: LISINOPRIL 10 MG TABLET PO SCH (08:50)
[2019-01-25] MEDS: HYDROCHLOROTHIAZIDE 12.5 MG CAPSULE PO SCH (08:50)
[2019-01-25] MEDS: TEMPLATE NON-FORMULARY MED. (Escitalopram Oxalate** 20 MG) HOMEMEDPO SCH (08:54)
[2019-01-25 12:35] VITALS: BP 102/57
[2019-01-25] MEDS: DAPTOMYCIN 600 MG in SODIUM CHLORIDE 0.9% 100 ML IV SCH (13:04)
[2019-01-25] MEDS: ENOXAPARIN 40 MG/0.4 ML SQ SCH (13:04)
[2019-01-25] MEDS: OXYcodone/APAP 5/325MG TABLET PO PRN ×2 (16:03→21:32)
[2019-01-25] MEDS: DAKIN'S SOLUTION 1/4 STRENGTH 1,000 ML IRRIG SOLN EXT SCH (16:18)
[2019-01-25 19:19] VITALS: BP 135/57
[2019-01-26 01:24] VITALS: BP 141/55
[2019-01-26] MEDS: OXYcodone/APAP 5/325MG TABLET PO PRN ×3 (04:37→18:15)
[2019-01-26 05:17] LABS: BASOPHILS # (AUTO) 0.03 x10^3/uL (0-0.1); BASOPHILS % (AUTO) 0 % (0-1); EOSINOPHILS # (AUTO) 0.18 x10^3/uL (0-0.4); EOSINOPHILS % (AUTO) 2 % (1-7); LYMPHOCYTES # (AUTO) 2.08 x10^3/uL (1-3.4); LYMPHOCYTES % (AUTO) 21 % (22-44); MD NO; MEAN CORPUSCULAR HEMOGLOBIN 31.2 pg (27.0-34.8); MEAN CORPUSCULAR HGB CONC 33.4 g/dL (32.4-35.8); MEAN CORPUSCULAR VOLUME 93.5 fL (80-100); MEAN PLATELET VOLUME 8.4 fL (7.4-10.4); MONOCYTES # (AUTO) 0.49 x10^3/uL (0.2-0.8); MONOCYTES % (AUTO) 5 % (2-9); NEUTROPHILS # (AUTO) 7.04 x10^3/uL (1.8-6.8); NEUTROPHILS % (AUTO) 72 % (42-75); PLATELET COUNT 389 x10^3/uL (130-400); RED CELL DISTRIBUTION WIDTH 14.7 % (9.6-15.2)
[2019-01-26 05:26] LABS: ANION GAP 5 mmol/L (5-15); CALCIUM 8.8 mg/dL (8.5-10.1); CHLORIDE 106 mmol/L (98-107); CREATININE 0.79 mg/dL (0.55-1.02)
[2019-01-26] MEDS: AMPICILLIN/SULBACTAM 3 GM in SODIUM CHLORIDE 0.9% 100 ML IV SCH ×4 (06:38→23:36)
[2019-01-26] MEDS: ALENDRONATE 70 MG TABLET PO SCH (06:38)
[2019-01-26 07:50] VITALS: BP 145/70
[2019-01-26 08:02] VITALS: BP 143/72
[2019-01-26] MEDS: INSULIN LISPRO 100 UNITS/ML, PEN SQ-INSULIN SCH ×4 (08:07→21:33)
[2019-01-26] MEDS: TEMPLATE NON-FORMULARY MED. (Escitalopram Oxalate** 20 MG) HOMEMEDPO SCH (08:08)
[2019-01-26] MEDS: AMLODIPINE 10 MG TAB PO SCH (08:09)
[2019-01-26] MEDS: LAMOTRIGINE 25 MG TABLET PO SCH (08:10)
[2019-01-26] MEDS: HYDROCHLOROTHIAZIDE 12.5 MG CAPSULE PO SCH (08:10)
[2019-01-26] MEDS: BUPROPION 75 MG TABLET PO SCH (08:11)
[2019-01-26] MEDS: SENNA/DOCUSATE TABLET PO SCH (08:11)
[2019-01-26] MEDS: TIZANIDINE 4MG TABLET PO SCH (08:11)
[2019-01-26] MEDS: LISINOPRIL 10 MG TABLET PO SCH (08:11)
[2019-01-26] MEDS: METOPROLOL SUCCINATE 25 MG TAB.ER.24H PO SCH (08:11)
[2019-01-26] MEDS: MAGNESIUM HYDROXIDE 8%, 30ML UDC PO PRN (08:12)
[2019-01-26] MEDS: DAPTOMYCIN 600 MG in SODIUM CHLORIDE 0.9% 100 ML IV SCH (13:39)
[2019-01-26 14:00] VITALS: BP 125/73
[2019-01-26] MEDS: ENOXAPARIN 30 MG/0.3 ML SQ SCH (18:15)
[2019-01-26 19:27] VITALS: BP 150/67
[2019-01-26] MEDS ORDERED: ENOXAPARIN 40 MG/0.4 ML SQ SCH (21:00)
[2019-01-26] MEDS: ACETAMINOPHEN 325 MG TABLET PO PRN (21:33)
[2019-01-27 01:48] VITALS: BP 146/68
[2019-01-27] MEDS: AMPICILLIN/SULBACTAM 3 GM in SODIUM CHLORIDE 0.9% 100 ML IV SCH ×4 (05:21→23:32)
[2019-01-27] MEDS: ENOXAPARIN 30 MG/0.3 ML SQ SCH ×2 (05:21→16:51)
[2019-01-27] MEDS: INSULIN LISPRO 100 UNITS/ML, PEN SQ-INSULIN SCH ×4 (07:00→22:08)
[2019-01-27 08:10] VITALS: BP 153/76
[2019-01-27] MEDS: TEMPLATE NON-FORMULARY MED. (Escitalopram Oxalate** 20 MG) HOMEMEDPO SCH (09:00)
[2019-01-27 09:37] LABS: BASOPHILS # (AUTO) 0.02 x10^3/uL (0-0.1); BASOPHILS % (AUTO) 0 % (0-1); EOSINOPHILS # (AUTO) 0.19 x10^3/uL (0-0.4); EOSINOPHILS % (AUTO) 2 % (1-7); LYMPHOCYTES # (AUTO) 1.98 x10^3/uL (1-3.4); LYMPHOCYTES % (AUTO) 23 % (22-44); MD NO; MEAN CORPUSCULAR HGB CONC 32.3 g/dL (32.4-35.8); MEAN CORPUSCULAR VOLUME 92.9 fL (80-100); MEAN PLATELET VOLUME 8.7 fL (7.4-10.4); MONOCYTES # (AUTO) 0.48 x10^3/uL (0.2-0.8); MONOCYTES % (AUTO) 6 % (2-9); NEUTROPHILS # (AUTO) 6.01 x10^3/uL (1.8-6.8); NEUTROPHILS % (AUTO) 69 % (42-75); PLATELET COUNT 405 x10^3/uL (130-400); RED BLOOD COUNT 3.72 x10^6/uL (3.82-5.3); RED CELL DISTRIBUTION WIDTH 14.5 % (9.6-15.2)
[2019-01-27] MEDS: LISINOPRIL 10 MG TABLET PO SCH (09:39)
[2019-01-27] MEDS: BUPROPION 75 MG TABLET PO SCH (09:39)
[2019-01-27] MEDS: HYDROCHLOROTHIAZIDE 12.5 MG CAPSULE PO SCH (09:39)
[2019-01-27] MEDS: AMLODIPINE 10 MG TAB PO SCH (09:40)
[2019-01-27] MEDS: METOPROLOL SUCCINATE 25 MG TAB.ER.24H PO SCH (09:40)
[2019-01-27] MEDS: SENNA/DOCUSATE TABLET PO SCH (09:40)
[2019-01-27] MEDS: LAMOTRIGINE 25 MG TABLET PO SCH (09:40)
[2019-01-27] MEDS: TIZANIDINE 4MG TABLET PO SCH (09:40)
[2019-01-27] MEDS: DAKIN'S SOLUTION 1/4 STRENGTH 1,000 ML IRRIG SOLN EXT SCH (09:41)
[2019-01-27 09:45] LABS: ANION GAP 8 mmol/L (5-15); CALCIUM 8.9 mg/dL (8.5-10.1); CHLORIDE 104 mmol/L (98-107); CREATININE 0.78 mg/dL (0.55-1.02)
[2019-01-27] MEDS: DAPTOMYCIN 600 MG in SODIUM CHLORIDE 0.9% 100 ML IV SCH (12:44)
[2019-01-27 14:00] VITALS: BP 115/67
[2019-01-27] MEDS: OXYcodone/APAP 5/325MG TABLET PO PRN ×2 (16:20→22:07)
[2019-01-27 20:27] VITALS: BP 132/65
[2019-01-28 03:55] VITALS: BP 129/63
[2019-01-28] MEDS: ENOXAPARIN 30 MG/0.3 ML SQ SCH ×2 (05:43→18:04)
[2019-01-28] MEDS: AMPICILLIN/SULBACTAM 3 GM in SODIUM CHLORIDE 0.9% 100 ML IV SCH ×4 (05:44→23:31)
[2019-01-28 05:58] LABS: ANION GAP 9 mmol/L (5-15); CALCIUM 8.4 mg/dL (8.5-10.1); CHLORIDE 104 mmol/L (98-107); CREATININE 1.02 mg/dL (0.55-1.02)
[2019-01-28 07:33] LABS: MD YES; MEAN CORPUSCULAR HEMOGLOBIN 30.7 pg (27.0-34.8); MEAN CORPUSCULAR HGB CONC 33.2 g/dL (32.4-35.8); MEAN CORPUSCULAR VOLUME 92.4 fL (80-100); MEAN PLATELET VOLUME 8.6 fL (7.4-10.4); PLATELET COUNT 387 x10^3/uL (130-400)
[2019-01-28 07:35] LABS: BAND#(MANUAL) 0.15 x10^3/uL; BANDS%(MANUAL) 2 % (0-7); EOS#(MANUAL) 0.22 x10^3/uL (0.0-0.4); EOS% (MANUAL) 3 % (1-7); LYMPH#(MANUAL) 2.29 x10^3/uL (1-3.4); LYMPHS% (MANUAL) 31 % (22-44); MONOS#(MANUAL) 0.15 x10^3/uL (0.3-2.7); MONOS% (MANUAL) 2 % (2-9); SEG#(MANUAL) 4.59 x10^3/uL (1.8-6.8); SEGS% (MANUAL) 62 % (42-75)
[2019-01-28 07:36] LABS: <PLATELET ESTIMATE> ADEQUATE; <PLT MORPHOLOGY> NORMAL PLT MORPH; POLYCHROMASIA 1+
[2019-01-28 07:55] VITALS: BP 136/66
[2019-01-28] MEDS: INSULIN LISPRO 100 UNITS/ML, PEN SQ-INSULIN SCH ×4 (08:35→20:50)
[2019-01-28] MEDS: SENNA/DOCUSATE TABLET PO SCH (11:10)
[2019-01-28] MEDS: AMLODIPINE 10 MG TAB PO SCH (11:10)
[2019-01-28] MEDS: LAMOTRIGINE 25 MG TABLET PO SCH (11:11)
[2019-01-28] MEDS: TIZANIDINE 4MG TABLET PO SCH (11:12)
[2019-01-28] MEDS: HYDROCHLOROTHIAZIDE 12.5 MG CAPSULE PO SCH (11:12)
[2019-01-28] MEDS: BUPROPION 75 MG TABLET PO SCH (11:12)
[2019-01-28] MEDS: METOPROLOL SUCCINATE 25 MG TAB.ER.24H PO SCH (11:12)
[2019-01-28] MEDS: LISINOPRIL 10 MG TABLET PO SCH (11:13)
[2019-01-28] MEDS: DAKIN'S SOLUTION 1/4 STRENGTH 1,000 ML IRRIG SOLN EXT SCH (11:19)
[2019-01-28] MEDS: TEMPLATE NON-FORMULARY MED. (Escitalopram Oxalate** 20 MG) HOMEMEDPO SCH (11:19)
[2019-01-28 14:00] VITALS: BP 112/64
[2019-01-28] MEDS: DAPTOMYCIN 600 MG in SODIUM CHLORIDE 0.9% 100 ML IV SCH (14:14)
[2019-01-28 20:00] VITALS: BP 136/69
[2019-01-28] MEDS: OXYcodone/APAP 5/325MG TABLET PO PRN (21:02)
[2019-01-29 02:35] VITALS: BP 142/62
[2019-01-29] MEDS: ENOXAPARIN 30 MG/0.3 ML SQ SCH ×2 (05:35→18:00)
[2019-01-29] MEDS: AMPICILLIN/SULBACTAM 3 GM in SODIUM CHLORIDE 0.9% 100 ML IV SCH ×4 (05:35→23:11)
[2019-01-29 05:38] LABS: HCT (SEDRATE) 33.6 % (34.6-47.8)
[2019-01-29] MEDS: INSULIN LISPRO 100 UNITS/ML, PEN SQ-INSULIN SCH ×4 (07:00→21:32)
[2019-01-29] MEDS: LAMOTRIGINE 25 MG TABLET PO SCH (07:32)
[2019-01-29] MEDS: METOPROLOL SUCCINATE 25 MG TAB.ER.24H PO SCH (07:32)
[2019-01-29] MEDS: SENNA/DOCUSATE TABLET PO SCH (07:32)
[2019-01-29] MEDS: HYDROCHLOROTHIAZIDE 12.5 MG CAPSULE PO SCH (07:32)
[2019-01-29] MEDS: OXYcodone/APAP 5/325MG TABLET PO PRN ×2 (07:33→13:34)
[2019-01-29] MEDS: LISINOPRIL 10 MG TABLET PO SCH (07:33)
[2019-01-29] MEDS: BUPROPION 75 MG TABLET PO SCH (07:33)
[2019-01-29] MEDS: AMLODIPINE 10 MG TAB PO SCH (07:38)
[2019-01-29] MEDS: TIZANIDINE 4MG TABLET PO SCH (07:38)
[2019-01-29] MEDS: TEMPLATE NON-FORMULARY MED. (Escitalopram Oxalate** 20 MG) HOMEMEDPO SCH (07:39)
[2019-01-29] MEDS ORDERED: ACETAMINOPHEN 325 MG TABLET PO PRN (08:00)
[2019-01-29 08:03] VITALS: BP 136/70
[2019-01-29] MEDS: DAPTOMYCIN 600 MG in SODIUM CHLORIDE 0.9% 100 ML IV SCH (12:17)
[2019-01-29 14:56] VITALS: BP 119/67
[2019-01-29] MEDS: CARVEDILOL 6.25 MG TABLET PO SCH (18:04)
[2019-01-29 19:39] VITALS: BP 125/63
[2019-01-30 01:13] VITALS: BP 130/69
[2019-01-30] MEDS: OXYcodone/APAP 5/325MG TABLET PO PRN (05:13)
[2019-01-30] MEDS: CARVEDILOL 6.25 MG TABLET PO SCH ×2 (05:13→18:13)
[2019-01-30 05:21] LABS: HEMOGLOBIN A1C 8.2 % (4.2-6.3)
[2019-01-30] MEDS: AMPICILLIN/SULBACTAM 3 GM in SODIUM CHLORIDE 0.9% 100 ML IV SCH ×4 (05:26→23:38)
[2019-01-30] MEDS: ENOXAPARIN 30 MG/0.3 ML SQ SCH ×2 (05:26→18:13)
[2019-01-30 07:44] VITALS: BP 116/66
[2019-01-30] MEDS ORDERED: OXYcodone/APAP 5/325MG TABLET PO PRN (08:00)
[2019-01-30] MEDS: INSULIN LISPRO 100 UNITS/ML, PEN SQ-INSULIN SCH ×4 (08:30→21:05)
[2019-01-30] MEDS: LAMOTRIGINE 25 MG TABLET PO SCH (10:28)
[2019-01-30] MEDS: BUPROPION 75 MG TABLET PO SCH (10:28)
[2019-01-30] MEDS: TIZANIDINE 4MG TABLET PO SCH (10:28)
[2019-01-30] MEDS: HYDROCHLOROTHIAZIDE 12.5 MG CAPSULE PO SCH (10:29)
[2019-01-30] MEDS: SENNA/DOCUSATE TABLET PO SCH (10:29)
[2019-01-30] MEDS: LISINOPRIL 10 MG TABLET PO SCH (10:29)
[2019-01-30] MEDS: TEMPLATE NON-FORMULARY MED. (Escitalopram Oxalate** 20 MG) HOMEMEDPO SCH (10:32)
[2019-01-30] MEDS: DAPTOMYCIN 600 MG in SODIUM CHLORIDE 0.9% 100 ML IV SCH (13:14)
[2019-01-30 13:35] VITALS: BP 107/61
[2019-01-30] MEDS ORDERED: DOXY100T10 PO ×2 (14:58)
[2019-01-30] MEDS ORDERED: ACET325T14 PO (14:58)
[2019-01-30] MEDS ORDERED: SENN-177 PO (14:58)
[2019-01-30] MEDS ORDERED: CARV6.2512 PO (14:58)
[2019-01-30 19:25] VITALS: BP 124/66
[2019-01-31 02:23] VITALS: BP 128/65
[2019-01-31] MEDS: ENOXAPARIN 30 MG/0.3 ML SQ SCH ×2 (05:44→18:00)
[2019-01-31] MEDS: AMPICILLIN/SULBACTAM 3 GM in SODIUM CHLORIDE 0.9% 100 ML IV SCH (05:44)
[2019-01-31] MEDS: CARVEDILOL 6.25 MG TABLET PO SCH ×2 (05:44→18:12)
[2019-01-31] MEDS ORDERED: AMOX1TAB61 PO (07:07)
[2019-01-31] MEDS ORDERED: DOXY100T10 PO (07:08)
[2019-01-31 08:31] VITALS: BP 151/75
[2019-01-31] MEDS: INSULIN LISPRO 100 UNITS/ML, PEN SQ-INSULIN SCH ×3 (08:38→17:06)
[2019-01-31] MEDS: DOXYCYCLINE 100MG CAP PO SCH ×2 (08:39→20:13)
[2019-01-31] MEDS: AMOXICILLIN/CLAV 500-125MG TABLET PO SCH ×2 (08:40→14:40)
[2019-01-31] MEDS: LAMOTRIGINE 25 MG TABLET PO SCH (08:40)
[2019-01-31] MEDS: BUPROPION 75 MG TABLET PO SCH (08:41)
[2019-01-31] MEDS: LISINOPRIL 10 MG TABLET PO SCH (08:41)
[2019-01-31] MEDS: HYDROCHLOROTHIAZIDE 12.5 MG CAPSULE PO SCH (08:41)
[2019-01-31] MEDS: TIZANIDINE 4MG TABLET PO SCH (08:41)
[2019-01-31] MEDS: SENNA/DOCUSATE TABLET PO SCH (08:42)
[2019-01-31] MEDS: TEMPLATE NON-FORMULARY MED. (Escitalopram Oxalate** 20 MG) HOMEMEDPO SCH (08:47)
[2019-01-31 13:00] VITALS: BP 128/73
[2019-01-31 19:27] VITALS: BP 148/68
== END 2019-01-31 20:50 | disposition home health service (06) | DRG 571 ==
LOC: ED 22:20 → EDIP 22:54 → 3NW 23:26
PROVIDERS: ADMIT Family Medicine; ATTEND Family Medicine
PROC: 0JB90ZZ Excision of Buttock Subcutaneous Tissue and Fascia, Open Approach (ICD-10-PCS; principal; 2019-01-20 15:45)
DX: L02.31 Cutaneous abscess of buttock (principal); Z68.41 Body mass index [BMI] 40.0-44.9, adult; L03.317 Cellulitis of buttock; E11.65 Type 2 diabetes mellitus with hyperglycemia; E66.01 Morbid (severe) obesity due to excess calories; E78.5 Hyperlipidemia, unspecified; F17.200 Nicotine dependence, unspecified, uncomplicated; G47.00 Insomnia, unspecified; I10 Essential (primary) hypertension; J44.9 Chronic obstructive pulmonary disease, unspecified; Z90.710 Acquired absence of both cervix and uterus
CPT/HCPCS: 36415; 72193; 80048; 80053; 82962; 83036; 83605; 85025; 85651; 86140; 87040; 87070; 87075; 87205; 88305; 99285; G0378; J0295; J0878; J1650; J2175; J2405; J2543; J2704; J3010; J3370; Q9967; J0330; J1815; J2765; J7040

== ENCOUNTER → 2019-02-07 | Outpatient (CLI) | payer MEDICARE ==
[~2019-02-07] MED LIST changes: +ACET325T14 PO; +AMOX1TAB61 PO; +CARV6.2512 PO; +SENN-177 PO; +SITA1TAB5 PO
== END | disposition home or self-care (01) ==
LOC: WOUND 13:26
PROVIDERS: ATTEND Internal Medicine
DX: T81.89XA Other complications of procedures, not elsewhere classified, initial encounter (principal); L02.31 Cutaneous abscess of buttock; E78.5 Hyperlipidemia, unspecified; E11.65 Type 2 diabetes mellitus with hyperglycemia; E11.649 Type 2 diabetes mellitus with hypoglycemia without coma; I10 Essential (primary) hypertension; J44.9 Chronic obstructive pulmonary disease, unspecified; E66.01 Morbid (severe) obesity due to excess calories; Z68.41 Body mass index [BMI] 40.0-44.9, adult; Z90.710 Acquired absence of both cervix and uterus; Z87.891 Personal history of nicotine dependence; Y92.84 Military training ground as the place of occurrence of the external cause; Y83.8 Other surgical procedures as the cause of abnormal reaction of the patient, or of later complication, without mention of misadventure at the time of the procedure
CPT/HCPCS: 97597; 97598; G0463

== ENCOUNTER → 2019-02-14 | Outpatient (CLI) | payer MEDICARE | END | disposition home or self-care (01) | LOC: WOUND 14:20 | PROVIDERS: ATTEND Internal Medicine | DX: T81.89XD Other complications of procedures, not elsewhere classified, subsequent encounter (principal); L02.31 Cutaneous abscess of buttock; E78.5 Hyperlipidemia, unspecified; E11.65 Type 2 diabetes mellitus with hyperglycemia; E11.649 Type 2 diabetes mellitus with hypoglycemia without coma; I10 Essential (primary) hypertension; J44.9 Chronic obstructive pulmonary disease, unspecified; E66.01 Morbid (severe) obesity due to excess calories; Z68.41 Body mass index [BMI] 40.0-44.9, adult; Z90.710 Acquired absence of both cervix and uterus; Z87.891 Personal history of nicotine dependence; Y83.8 Other surgical procedures as the cause of abnormal reaction of the patient, or of later complication, without mention of misadventure at the time of the procedure | CPT/HCPCS: 97597; 97598 ==

== ENCOUNTER → 2019-02-21 | Outpatient (CLI) | payer MEDICARE | END | disposition home or self-care (01) | LOC: WOUND 13:01 | PROVIDERS: ATTEND Internal Medicine | DX: T81.89XD Other complications of procedures, not elsewhere classified, subsequent encounter (principal); E11.649 Type 2 diabetes mellitus with hypoglycemia without coma; I10 Essential (primary) hypertension; L02.31 Cutaneous abscess of buttock; E78.5 Hyperlipidemia, unspecified; J44.9 Chronic obstructive pulmonary disease, unspecified; E66.01 Morbid (severe) obesity due to excess calories; Z68.41 Body mass index [BMI] 40.0-44.9, adult; Z87.891 Personal history of nicotine dependence; Z90.710 Acquired absence of both cervix and uterus; Y83.8 Other surgical procedures as the cause of abnormal reaction of the patient, or of later complication, without mention of misadventure at the time of the procedure | CPT/HCPCS: 97597; 97598 ==

== ENCOUNTER 2019-02-26 09:26 | Outpatient (CLI) | payer MEDICARE | END 2019-02-26 23:59 | disposition home or self-care (01) | LOC: WOUND 09:26 | PROVIDERS: ATTEND Internal Medicine | DX: Z02.9 Encounter for administrative examinations, unspecified (principal) ==

== ENCOUNTER → 2019-02-28 | Outpatient (CLI) | payer MEDICARE | END | disposition home or self-care (01) | LOC: WOUND 08:54 | PROVIDERS: ATTEND Internal Medicine | DX: T81.31XD Disruption of external operation (surgical) wound, not elsewhere classified, subsequent encounter (principal); E11.649 Type 2 diabetes mellitus with hypoglycemia without coma; E11.65 Type 2 diabetes mellitus with hyperglycemia; L02.31 Cutaneous abscess of buttock; I10 Essential (primary) hypertension; E78.5 Hyperlipidemia, unspecified; J44.9 Chronic obstructive pulmonary disease, unspecified; E66.01 Morbid (severe) obesity due to excess calories; Z68.41 Body mass index [BMI] 40.0-44.9, adult; Z90.710 Acquired absence of both cervix and uterus; Z87.891 Personal history of nicotine dependence; Y83.8 Other surgical procedures as the cause of abnormal reaction of the patient, or of later complication, without mention of misadventure at the time of the procedure | CPT/HCPCS: 97597; 97598 ==

== ENCOUNTER → 2019-03-07 | Outpatient (CLI) | payer MEDICARE | END | disposition home or self-care (01) | LOC: WOUND 09:30 | PROVIDERS: ATTEND Internal Medicine | DX: T81.89XD Other complications of procedures, not elsewhere classified, subsequent encounter (principal); L02.31 Cutaneous abscess of buttock; E11.65 Type 2 diabetes mellitus with hyperglycemia; E11.649 Type 2 diabetes mellitus with hypoglycemia without coma; I10 Essential (primary) hypertension; E78.5 Hyperlipidemia, unspecified; J44.9 Chronic obstructive pulmonary disease, unspecified; E66.01 Morbid (severe) obesity due to excess calories; Z68.41 Body mass index [BMI] 40.0-44.9, adult; Z90.710 Acquired absence of both cervix and uterus; Z87.891 Personal history of nicotine dependence; Y83.8 Other surgical procedures as the cause of abnormal reaction of the patient, or of later complication, without mention of misadventure at the time of the procedure | CPT/HCPCS: 97597; 97598 ==

== ENCOUNTER → 2019-03-14 | Outpatient (CLI) | payer MEDICARE | END | disposition home or self-care (01) | LOC: WOUND 08:55 | PROVIDERS: ATTEND Internal Medicine | DX: T81.89XD Other complications of procedures, not elsewhere classified, subsequent encounter (principal); L02.31 Cutaneous abscess of buttock; E78.5 Hyperlipidemia, unspecified; I10 Essential (primary) hypertension; E11.65 Type 2 diabetes mellitus with hyperglycemia; E11.649 Type 2 diabetes mellitus with hypoglycemia without coma; J44.9 Chronic obstructive pulmonary disease, unspecified; E66.01 Morbid (severe) obesity due to excess calories; Z68.41 Body mass index [BMI] 40.0-44.9, adult; Z90.710 Acquired absence of both cervix and uterus; Z87.891 Personal history of nicotine dependence; Y83.8 Other surgical procedures as the cause of abnormal reaction of the patient, or of later complication, without mention of misadventure at the time of the procedure | CPT/HCPCS: 97597; 97598 ==

== ENCOUNTER → 2019-03-16 | Outpatient (CLI) | payer MEDICARE | END | disposition home or self-care (01) | LOC: WOUND 11:00 | PROVIDERS: ATTEND Family Medicine | DX: T81.89XD Other complications of procedures, not elsewhere classified, subsequent encounter (principal); L02.31 Cutaneous abscess of buttock; E11.65 Type 2 diabetes mellitus with hyperglycemia; E11.649 Type 2 diabetes mellitus with hypoglycemia without coma; I10 Essential (primary) hypertension; E78.5 Hyperlipidemia, unspecified; J44.9 Chronic obstructive pulmonary disease, unspecified; E66.01 Morbid (severe) obesity due to excess calories; Z68.41 Body mass index [BMI] 40.0-44.9, adult; Z87.891 Personal history of nicotine dependence; Z90.710 Acquired absence of both cervix and uterus; Y83.8 Other surgical procedures as the cause of abnormal reaction of the patient, or of later complication, without mention of misadventure at the time of the procedure | CPT/HCPCS: 97607 ==

== ENCOUNTER → 2019-03-19 | Outpatient (CLI) | payer MEDICARE | END | disposition home or self-care (01) | LOC: WOUND 12:52 | PROVIDERS: ATTEND Internal Medicine | DX: T81.89XD Other complications of procedures, not elsewhere classified, subsequent encounter (principal); L02.31 Cutaneous abscess of buttock; E11.65 Type 2 diabetes mellitus with hyperglycemia; E11.649 Type 2 diabetes mellitus with hypoglycemia without coma; E78.5 Hyperlipidemia, unspecified; I10 Essential (primary) hypertension; J44.9 Chronic obstructive pulmonary disease, unspecified; E66.01 Morbid (severe) obesity due to excess calories; Z68.41 Body mass index [BMI] 40.0-44.9, adult; Z87.891 Personal history of nicotine dependence; Z90.710 Acquired absence of both cervix and uterus; Y83.8 Other surgical procedures as the cause of abnormal reaction of the patient, or of later complication, without mention of misadventure at the time of the procedure | CPT/HCPCS: 97597 ==

== ENCOUNTER → 2019-03-22 | Outpatient (CLI) | payer MEDICARE | END | disposition home or self-care (01) | LOC: WOUND 11:00 | PROVIDERS: ATTEND Internal Medicine Cardiovascular Disease | DX: T81.89XD Other complications of procedures, not elsewhere classified, subsequent encounter (principal); L02.31 Cutaneous abscess of buttock; E11.65 Type 2 diabetes mellitus with hyperglycemia; E11.649 Type 2 diabetes mellitus with hypoglycemia without coma; I10 Essential (primary) hypertension; E78.5 Hyperlipidemia, unspecified; J44.9 Chronic obstructive pulmonary disease, unspecified; E66.01 Morbid (severe) obesity due to excess calories; Z68.41 Body mass index [BMI] 40.0-44.9, adult; Z90.710 Acquired absence of both cervix and uterus; Z87.891 Personal history of nicotine dependence; Y83.8 Other surgical procedures as the cause of abnormal reaction of the patient, or of later complication, without mention of misadventure at the time of the procedure | CPT/HCPCS: G0463 ==

== ENCOUNTER → 2019-03-26 | Outpatient (CLI) | payer MEDICARE | END | disposition home or self-care (01) | LOC: WOUND 13:00 | PROVIDERS: ATTEND Internal Medicine | DX: T81.89XD Other complications of procedures, not elsewhere classified, subsequent encounter (principal); L02.31 Cutaneous abscess of buttock; E11.65 Type 2 diabetes mellitus with hyperglycemia; E11.649 Type 2 diabetes mellitus with hypoglycemia without coma; E78.5 Hyperlipidemia, unspecified; I10 Essential (primary) hypertension; J44.9 Chronic obstructive pulmonary disease, unspecified; E66.01 Morbid (severe) obesity due to excess calories; Z87.891 Personal history of nicotine dependence; Z90.710 Acquired absence of both cervix and uterus; Z68.41 Body mass index [BMI] 40.0-44.9, adult; Y83.8 Other surgical procedures as the cause of abnormal reaction of the patient, or of later complication, without mention of misadventure at the time of the procedure | CPT/HCPCS: 97597 ==

== ENCOUNTER → 2019-04-09 | Outpatient (CLI) | payer MEDICARE | END | disposition home or self-care (01) | LOC: WOUND 13:04 | PROVIDERS: ATTEND Internal Medicine | DX: T81.89XD Other complications of procedures, not elsewhere classified, subsequent encounter (principal); L02.31 Cutaneous abscess of buttock; E11.65 Type 2 diabetes mellitus with hyperglycemia; E11.649 Type 2 diabetes mellitus with hypoglycemia without coma; E78.5 Hyperlipidemia, unspecified; I10 Essential (primary) hypertension; J44.9 Chronic obstructive pulmonary disease, unspecified; E66.01 Morbid (severe) obesity due to excess calories; Z68.41 Body mass index [BMI] 40.0-44.9, adult; Z87.891 Personal history of nicotine dependence; Z90.710 Acquired absence of both cervix and uterus; Y83.8 Other surgical procedures as the cause of abnormal reaction of the patient, or of later complication, without mention of misadventure at the time of the procedure | CPT/HCPCS: 97597 ==

== ENCOUNTER → 2019-04-16 | Outpatient (CLI) | payer MEDICARE | END | disposition home or self-care (01) | LOC: WOUND 09:50 | PROVIDERS: ATTEND Internal Medicine Cardiovascular Disease | DX: T81.89XD Other complications of procedures, not elsewhere classified, subsequent encounter (principal); E11.649 Type 2 diabetes mellitus with hypoglycemia without coma; L02.31 Cutaneous abscess of buttock; E78.5 Hyperlipidemia, unspecified; I10 Essential (primary) hypertension; J44.9 Chronic obstructive pulmonary disease, unspecified; E66.01 Morbid (severe) obesity due to excess calories; Z68.41 Body mass index [BMI] 40.0-44.9, adult; Z90.49 Acquired absence of other specified parts of digestive tract; Z87.891 Personal history of nicotine dependence; Y83.8 Other surgical procedures as the cause of abnormal reaction of the patient, or of later complication, without mention of misadventure at the time of the procedure | CPT/HCPCS: G0463 ==

== ENCOUNTER → 2019-04-23 | Outpatient (CLI) | payer MEDICARE | END | disposition home or self-care (01) | LOC: WOUND 13:29 | PROVIDERS: ATTEND Internal Medicine | DX: T81.89XD Other complications of procedures, not elsewhere classified, subsequent encounter (principal); L02.31 Cutaneous abscess of buttock; E11.649 Type 2 diabetes mellitus with hypoglycemia without coma; E11.65 Type 2 diabetes mellitus with hyperglycemia; I10 Essential (primary) hypertension; E78.5 Hyperlipidemia, unspecified; J44.9 Chronic obstructive pulmonary disease, unspecified; E66.01 Morbid (severe) obesity due to excess calories; Z68.41 Body mass index [BMI] 40.0-44.9, adult; Z87.891 Personal history of nicotine dependence; Z90.710 Acquired absence of both cervix and uterus; Z90.49 Acquired absence of other specified parts of digestive tract; Y83.8 Other surgical procedures as the cause of abnormal reaction of the patient, or of later complication, without mention of misadventure at the time of the procedure | CPT/HCPCS: 97597 ==

== ENCOUNTER → 2019-04-30 | Outpatient (CLI) | payer MEDICARE | END | disposition home or self-care (01) | LOC: WOUND 10:30 | PROVIDERS: ATTEND Internal Medicine | DX: T81.89XD Other complications of procedures, not elsewhere classified, subsequent encounter (principal); L02.31 Cutaneous abscess of buttock; E11.649 Type 2 diabetes mellitus with hypoglycemia without coma; E11.65 Type 2 diabetes mellitus with hyperglycemia; I10 Essential (primary) hypertension; E78.5 Hyperlipidemia, unspecified; E66.01 Morbid (severe) obesity due to excess calories; J44.9 Chronic obstructive pulmonary disease, unspecified; Z68.41 Body mass index [BMI] 40.0-44.9, adult; Z87.891 Personal history of nicotine dependence; Z90.710 Acquired absence of both cervix and uterus; Z90.49 Acquired absence of other specified parts of digestive tract; Y83.8 Other surgical procedures as the cause of abnormal reaction of the patient, or of later complication, without mention of misadventure at the time of the procedure | CPT/HCPCS: 97597 ==

== ENCOUNTER 2019-08-20 12:25 | Inpatient (IN) | payer MEDICARE ==
[~2019-08-20] VITALS: Ht 167.6 cm; Wt 104.8 kg
[~2019-08-20 12:25] MED LIST changes: -DOXY100T10 PO; +DOXY100T23 PO; +LISI1TAB23 PO; -LISI1TAB3 PO
--- NOTE | 2019-08-20 12:59 | NUR ---
TASK RN: PT TO ROOM VIA WHEELCHAIR, TRANSFERS TO [facility] AND DRESSES IN GOWN WITH MIN ASSIST BY DAUGHTER. ALL MONITORS PLACED, VSS. PT SENT BY DR. BRADSHAW 2/2 ELEVATED CREATININE PER DAUGHTER. PT C/O INCREASING WEAKNESS, GERD AFTER EATING, OVER 10LB WEGHT LOSS. DR. DARNELL AT BEDSIDE. PT ASSESSMENT REVIEWED, POC DISCUSSED, ORDERS REC'D.
[2019-08-20 14:00] LABS: BASOPHILS # (AUTO) 0.02 x10^3/uL (0-0.1); BASOPHILS % (AUTO) 0 % (0-1); EOSINOPHILS # (AUTO) 0.14 x10^3/uL (0-0.4); EOSINOPHILS % (AUTO) 2 % (1-7); LYMPHOCYTES # (AUTO) 1.47 x10^3/uL (1-3.4); LYMPHOCYTES % (AUTO) 22 % (22-44); MD NO; MEAN CORPUSCULAR HEMOGLOBIN 30.5 pg (27.0-34.8); MEAN CORPUSCULAR HGB CONC 32.4 g/dL (32.4-35.8); MEAN CORPUSCULAR VOLUME 94.2 fL (80-100); MEAN PLATELET VOLUME 9.7 fL (7.4-10.4); MONOCYTES # (AUTO) 0.33 x10^3/uL (0.2-0.8); MONOCYTES % (AUTO) 5 % (2-9); NEUTROPHILS # (AUTO) 4.59 x10^3/uL (1.8-6.8); NEUTROPHILS % (AUTO) 70 % (42-75); PLATELET COUNT 208 x10^3/uL (130-400); RED BLOOD COUNT 3.33 x10^6/uL (3.82-5.3); RED CELL DISTRIBUTION WIDTH 14.9 % (9.6-15.2)
[2019-08-20 14:11] LABS: ALBUMIN 3.2 g/dL (3.4-5.0); ANION GAP 12 mmol/L (5-15); CALCIUM 8.4 mg/dL (8.5-10.1); CHLORIDE 114 mmol/L (98-107)
[2019-08-20 14:16] LABS: ALANINE AMINOTRANSFERASE 26 U/L (12-78); ALKALINE PHOSPHATASE 54 U/L (45-117); BILIRUBIN,TOTAL 0.3 mg/dL (0.2-1.0); CREATINE KINASE, TOTAL 67 U/L (26-192); CREATININE 6.73 mg/dL (0.55-1.02); TOTAL PROTEIN 6.8 g/dL (6.4-8.2)
--- NOTE | 2019-08-20 14:22 | NUR ---
PT AMB TO BR AND BACK TO ROOM WITH STEADY GAIT.PT PROVIDED URINE SAMPLE AT THIS TIME.
[2019-08-20] MEDS ORDERED: OXYB5TAB10 PO (14:32)
[2019-08-20] MEDS ORDERED: ASPI1TAB54 PO (14:32)
--- NOTE | 2019-08-20 14:41 | NUR ---
US AT BEDSIDE AT THIS TIME.
[2019-08-20 14:48] LABS: CULTURE INDICATED? YES; MICROSCOPIC INDICATED
[2019-08-20 14:56] LABS: CHLORIDE,URINE RANDOM 61 mmol/L; POTASSIUM,URINE RANDOM 18 mmol/L; SODIUM,URINE RANDOM 58 mmol/L
--- NOTE | 2019-08-20 15:53 | NUR ---
REPORT GIVEN TO GENARO LAYTON. ALL QUESTIONS ANSWERED.
[2019-08-20] MEDS ORDERED: ONDANSETRON 2MG/ML, 2ML IVPush PRN (16:00)
[2019-08-20] MEDS: HEPARIN 5,000 UNITS/ML, 1ML SQ SCH (16:00)
[2019-08-20] MEDS ORDERED: DOCUSATE 100 MG CAPSULE PO PRN (16:00)
[2019-08-20] MEDS ORDERED: GLUCAGON 1 MG IM PRN (16:00)
[2019-08-20] MEDS ORDERED: DEXTROSE 50%, 50ML SYRINGE IVPush PRN (16:00)
[2019-08-20] MEDS ORDERED: NICOTINE 7 MG/24 HR PATCH.TD24 TD PRN (16:00)
[2019-08-20] MEDS ORDERED: DEXTROSE 4 GM TAB.CHEW PO PRN (16:00)
[2019-08-20] MEDS: INSULIN LISPRO 100 UNITS/ML, PEN SQ-INSULIN SCH ×2 (16:30→21:00)
[2019-08-20 17:07] VITALS: BP 131/74
[2019-08-20] MEDS: ONDANSETRON ODT 4 MG PO PRN (18:35)
[2019-08-20] MEDS: SODIUM CHLORIDE FLUSH 10ML SYR IVF SCH (21:00)
[2019-08-20] MEDS: INSULIN GLARGINE 100 UNITS/ML, PEN SQ-INSULIN SCH (21:00)
[2019-08-20] MEDS: ATORVASTATIN 40 MG TABLET PO SCH (21:32)
[2019-08-20 23:24] LABS: CREATININE,URINE RANDOM 52.3 mg/dL
[2019-08-21] MEDS: HEPARIN 5,000 UNITS/ML, 1ML SQ SCH ×3 (00:11→16:23)
[2019-08-21 01:00] VITALS: BP 122/64
[2019-08-21 05:03] LABS: BASOPHILS # (AUTO) 0.01 x10^3/uL (0-0.1); BASOPHILS % (AUTO) 0 % (0-1); EOSINOPHILS # (AUTO) 0.14 x10^3/uL (0-0.4); EOSINOPHILS % (AUTO) 2 % (1-7); LYMPHOCYTES # (AUTO) 2.11 x10^3/uL (1-3.4); LYMPHOCYTES % (AUTO) 37 % (22-44); MD NO; MEAN CORPUSCULAR HEMOGLOBIN 30.9 pg (27.0-34.8); MEAN CORPUSCULAR VOLUME 93.4 fL (80-100); MEAN PLATELET VOLUME 9.2 fL (7.4-10.4); MONOCYTES # (AUTO) 0.38 x10^3/uL (0.2-0.8); MONOCYTES % (AUTO) 7 % (2-9); NEUTROPHILS # (AUTO) 3.14 x10^3/uL (1.8-6.8); NEUTROPHILS % (AUTO) 54 % (42-75); PLATELET COUNT 175 x10^3/uL (130-400); RED BLOOD COUNT 2.83 x10^6/uL (3.82-5.3); RED CELL DISTRIBUTION WIDTH 14.3 % (9.6-15.2)
[2019-08-21 05:15] LABS: ANION GAP 6 mmol/L (5-15); CALCIUM 7.7 mg/dL (8.5-10.1); CHLORIDE 110 mmol/L (98-107); CREATININE 4.77 mg/dL (0.55-1.02)
[2019-08-21 05:22] LABS: % IRON SATURATION 36 % (20-55); IRON LEVEL 59 mcg/dL (50-170); TOTAL IRON BINDING CAPACITY 163 mcg/dL (250-450)
[2019-08-21] MEDS: INSULIN LISPRO 100 UNITS/ML, PEN SQ-INSULIN SCH ×4 (08:22→21:00)
[2019-08-21] MEDS: SODIUM CHLORIDE FLUSH 10ML SYR IVF SCH ×2 (09:28→21:00)
[2019-08-21] MEDS: ESCITALOPRAM 10MG TABLET PO SCH (09:28)
[2019-08-21 09:45] VITALS: BP_SYST 125; BP_SYST 138; BP_DIAS 58; BP_DIAS 67
[2019-08-21 12:40] VITALS: BP 125/58
[2019-08-21 14:10] VITALS: BP 131/69
[2019-08-21] MEDS ORDERED: ASPI-650 PO (15:44)
[2019-08-21 17:21] LABS: ANA SCREEN POSITIVE (Negative); ANTI-NUCLEAR ANTIBODY PATTERN HOMOGENOUS
[2019-08-21] MEDS: ONDANSETRON ODT 4 MG PO PRN (19:12)
[2019-08-21 20:18] VITALS: BP 157/73
[2019-08-21] MEDS: INSULIN GLARGINE 100 UNITS/ML, PEN SQ-INSULIN SCH (21:00)
[2019-08-21] MEDS: ATORVASTATIN 40 MG TABLET PO SCH (21:33)
[2019-08-21] MEDS: DOCUSATE 100 MG CAPSULE PO SCH (21:33)
[2019-08-21] MEDS ORDERED: CALCIUM CARBONATE 500 MG TAB.CHEW PO PRN (22:00)
[2019-08-22] MEDS: HEPARIN 5,000 UNITS/ML, 1ML SQ SCH ×3 (00:28→16:58)
[2019-08-22 01:28] VITALS: BP 131/85
[2019-08-22] MEDS: INSULIN LISPRO 100 UNITS/ML, PEN SQ-INSULIN SCH ×4 (07:00→21:26)
[2019-08-22 07:58] VITALS: BP 148/71
[2019-08-22 09:22] LABS: ALBUMIN 3.2 g/dL (3.4-5.0); ANION GAP 7 mmol/L (5-15); CHLORIDE 106 mmol/L (98-107)
[2019-08-22 09:23] LABS: CREATININE 2.86 mg/dL (0.55-1.02)
[2019-08-22] MEDS: SODIUM CHLORIDE FLUSH 10ML SYR IVF SCH ×2 (11:49→21:25)
[2019-08-22] MEDS: DOCUSATE 100 MG CAPSULE PO SCH ×2 (11:49→21:25)
[2019-08-22] MEDS: ESCITALOPRAM 10MG TABLET PO SCH (11:50)
[2019-08-22 14:08] VITALS: BP 146/73
[2019-08-22] MEDS: POLYETHYLENE GLYCOL 17 GM PACKET PO PRN (17:48)
[2019-08-22 20:06] VITALS: BP 146/74
[2019-08-22] MEDS: ATORVASTATIN 40 MG TABLET PO SCH (21:25)
[2019-08-22] MEDS: INSULIN GLARGINE 100 UNITS/ML, PEN SQ-INSULIN SCH (21:26)
[2019-08-23 00:41] VITALS: BP 143/64
[2019-08-23 05:31] LABS: ANION GAP 3 mmol/L (5-15); CALCIUM 7.9 mg/dL (8.5-10.1); CHLORIDE 106 mmol/L (98-107); CREATININE 3.28 mg/dL (0.55-1.02)
[2019-08-23] MEDS: INSULIN LISPRO 100 UNITS/ML, PEN SQ-INSULIN SCH ×4 (07:00→20:42)
[2019-08-23 08:04] VITALS: BP 131/69
[2019-08-23] MEDS: ESCITALOPRAM 10MG TABLET PO SCH (08:28)
[2019-08-23] MEDS: HEPARIN 5,000 UNITS/ML, 1ML SQ SCH ×3 (08:29→16:21)
[2019-08-23] MEDS: DOCUSATE 100 MG CAPSULE PO SCH ×2 (08:29→20:40)
[2019-08-23] MEDS: SODIUM CHLORIDE FLUSH 10ML SYR IVF SCH ×2 (08:33→20:42)
[2019-08-23] MEDS: MAGNESIUM HYDROXIDE 8%, 30ML UDC PO SCH ×2 (09:37→20:40)
[2019-08-23 14:35] VITALS: BP 157/75
[2019-08-23] MEDS: ATORVASTATIN 40 MG TABLET PO SCH (20:40)
[2019-08-23] MEDS: MELATONIN 5 MG TABLET PO SCH (20:40)
[2019-08-23] MEDS: INSULIN GLARGINE 100 UNITS/ML, PEN SQ-INSULIN SCH (20:41)
[2019-08-23 21:00] VITALS: BP 147/67
[2019-08-24] VITALS (9 sets, daily range): BP systolic 122–147; BP diastolic 62–82
[2019-08-24] MEDS: HEPARIN 5,000 UNITS/ML, 1ML SQ SCH ×3 (00:48→17:32)
[2019-08-24 06:29] LABS: BASOPHILS # (AUTO) 0.02 x10^3/uL (0-0.1); BASOPHILS % (AUTO) 0 % (0-1); EOSINOPHILS % (AUTO) 3 % (1-7); LYMPHOCYTES % (AUTO) 41 % (22-44); MD NO; MEAN CORPUSCULAR HEMOGLOBIN 31.1 pg (27.0-34.8); MEAN CORPUSCULAR HGB CONC 32.9 g/dL (32.4-35.8); MEAN CORPUSCULAR VOLUME 94.4 fL (80-100); MEAN PLATELET VOLUME 9.5 fL (7.4-10.4); MONOCYTES # (AUTO) 0.49 x10^3/uL (0.2-0.8); MONOCYTES % (AUTO) 8 % (2-9); NEUTROPHILS # (AUTO) 2.74 x10^3/uL (1.8-6.8); NEUTROPHILS % (AUTO) 47 % (42-75); PLATELET COUNT 187 x10^3/uL (130-400); RED BLOOD COUNT 3.03 x10^6/uL (3.82-5.3)
[2019-08-24 06:40] LABS: ALBUMIN 2.9 g/dL (3.4-5.0); ANION GAP 6 mmol/L (5-15); CALCIUM 7.8 mg/dL (8.5-10.1); CHLORIDE 106 mmol/L (98-107)
[2019-08-24] MEDS: INSULIN LISPRO 100 UNITS/ML, PEN SQ-INSULIN SCH ×4 (07:00→20:44)
[2019-08-24] MEDS: SODIUM CHLORIDE FLUSH 10ML SYR IVF SCH ×2 (09:00→20:44)
[2019-08-24 10:28] LABS: INTERNATIONAL NORMALIZED RATIO 0.96 (0.93-1.1); PROTHROMBIN TIME 10.1 Seconds (9.6-11.5)
[2019-08-24] MEDS ORDERED: FENTANYL PF 100 MCG/2ML ONE (10:50)
[2019-08-24] MEDS ORDERED: NALOXONE 1 MG/ML, 2ML ONE (10:50)
[2019-08-24] MEDS ORDERED: FLUMAZENIL 0.1 MG/1 ML, 5ML ONE (10:50)
[2019-08-24] MEDS ORDERED: MIDAZOLAM 1 MG/ML, 5ML ONE (10:50)
[2019-08-24] MEDS ORDERED: FLU VACC QS2019-20 36MOS UP/PF 0.5 ML IM-VACC ONE (17:30)
[2019-08-24] MEDS: DOCUSATE 100 MG CAPSULE PO SCH ×2 (17:32→20:41)
[2019-08-24] MEDS: ESCITALOPRAM 10MG TABLET PO SCH (17:32)
[2019-08-24] MEDS: MELATONIN 5 MG TABLET PO SCH (20:41)
[2019-08-24] MEDS: LACTULOSE 20 GM/30 ML UDC PO SCH (20:41)
[2019-08-24] MEDS: ATORVASTATIN 40 MG TABLET PO SCH (20:41)
[2019-08-24] MEDS: INSULIN GLARGINE 100 UNITS/ML, PEN SQ-INSULIN SCH (20:44)
[2019-08-25] MEDS: HEPARIN 5,000 UNITS/ML, 1ML SQ SCH ×3 (00:36→17:20)
[2019-08-25 02:44] VITALS: BP 147/73
[2019-08-25 06:02] LABS: ALBUMIN 2.9 g/dL (3.4-5.0); ANION GAP 5 mmol/L (5-15); CALCIUM 7.9 mg/dL (8.5-10.1); CHLORIDE 108 mmol/L (98-107)
[2019-08-25 06:03] LABS: CREATININE 2.99 mg/dL (0.55-1.02)
[2019-08-25 06:44] VITALS: BP 148/66
[2019-08-25] MEDS: LACTULOSE 20 GM/30 ML UDC PO SCH ×2 (09:33→20:42)
[2019-08-25] MEDS: ESCITALOPRAM 10MG TABLET PO SCH (09:33)
[2019-08-25] MEDS: SODIUM CHLORIDE FLUSH 10ML SYR IVF SCH ×2 (09:34→20:42)
[2019-08-25] MEDS: DOCUSATE 100 MG CAPSULE PO SCH ×2 (09:35→20:40)
[2019-08-25] MEDS: INSULIN LISPRO 100 UNITS/ML, PEN SQ-INSULIN SCH ×4 (09:35→21:27)
[2019-08-25] MEDS: ACETAMINOPHEN 325 MG TABLET PO PRN (09:48)
[2019-08-25 12:26] VITALS: BP 137/81
[2019-08-25 20:03] VITALS: BP 136/74
[2019-08-25] MEDS: MELATONIN 5 MG TABLET PO SCH (20:40)
[2019-08-25] MEDS: ATORVASTATIN 40 MG TABLET PO SCH (20:40)
[2019-08-25] MEDS: INSULIN GLARGINE 100 UNITS/ML, PEN SQ-INSULIN SCH (21:28)
[2019-08-26] MEDS: HEPARIN 5,000 UNITS/ML, 1ML SQ SCH ×3 (01:31→18:31)
[2019-08-26 01:33] VITALS: BP 133/70
[2019-08-26 05:28] LABS: BASOPHILS # (AUTO) 0.01 x10^3/uL (0-0.1); BASOPHILS % (AUTO) 0 % (0-1); EOSINOPHILS # (AUTO) 0.27 x10^3/uL (0-0.4); EOSINOPHILS % (AUTO) 4 % (1-7); LYMPHOCYTES # (AUTO) 2.58 x10^3/uL (1-3.4); LYMPHOCYTES % (AUTO) 38 % (22-44); MD NO; MEAN CORPUSCULAR HEMOGLOBIN 31.5 pg (27.0-34.8); MEAN CORPUSCULAR HGB CONC 32.7 g/dL (32.4-35.8); MEAN CORPUSCULAR VOLUME 96.2 fL (80-100); MEAN PLATELET VOLUME 9.8 fL (7.4-10.4); MONOCYTES % (AUTO) 7 % (2-9); NEUTROPHILS # (AUTO) 3.44 x10^3/uL (1.8-6.8); NEUTROPHILS % (AUTO) 51 % (42-75); PLATELET COUNT 173 x10^3/uL (130-400); RED BLOOD COUNT 2.85 x10^6/uL (3.82-5.3); RED CELL DISTRIBUTION WIDTH 14.7 % (9.6-15.2)
[2019-08-26 05:38] LABS: CALCIUM 7.6 mg/dL (8.5-10.1); CHLORIDE 104 mmol/L (98-107)
[2019-08-26 05:44] LABS: ALANINE AMINOTRANSFERASE 26 U/L (12-78); ALBUMIN 2.9 g/dL (3.4-5.0); ALKALINE PHOSPHATASE 54 U/L (45-117); ANION GAP 10 mmol/L (5-15); BILIRUBIN,TOTAL 0.4 mg/dL (0.2-1.0); CREATININE 3.85 mg/dL (0.55-1.02); TOTAL PROTEIN 6.3 g/dL (6.4-8.2)
[2019-08-26 08:00] VITALS: BP 154/79
[2019-08-26] MEDS: INSULIN LISPRO 100 UNITS/ML, PEN SQ-INSULIN SCH ×4 (08:07→20:18)
[2019-08-26] MEDS: DOCUSATE 100 MG CAPSULE PO SCH ×2 (08:08→20:18)
[2019-08-26] MEDS: ESCITALOPRAM 10MG TABLET PO SCH (08:08)
[2019-08-26] MEDS: LACTULOSE 20 GM/30 ML UDC PO SCH ×2 (08:08→20:19)
[2019-08-26] MEDS: SODIUM CHLORIDE FLUSH 10ML SYR IVF SCH ×2 (08:11→20:19)
[2019-08-26 13:20] VITALS: BP 126/76
[2019-08-26 18:40] VITALS: BP 114/69
[2019-08-26] MEDS: MELATONIN 5 MG TABLET PO SCH (20:18)
[2019-08-26] MEDS: ATORVASTATIN 40 MG TABLET PO SCH (20:18)
[2019-08-26] MEDS: INSULIN GLARGINE 100 UNITS/ML, PEN SQ-INSULIN SCH (20:19)
[2019-08-27] MEDS: HEPARIN 5,000 UNITS/ML, 1ML SQ SCH ×3 (01:43→16:55)
[2019-08-27 01:51] VITALS: BP 145/69
[2019-08-27 06:06] LABS: BASOPHILS # (AUTO) 0.02 x10^3/uL (0-0.1); BASOPHILS % (AUTO) 0 % (0-1); EOSINOPHILS # (AUTO) 0.25 x10^3/uL (0-0.4); EOSINOPHILS % (AUTO) 4 % (1-7); LYMPHOCYTES % (AUTO) 32 % (22-44); MD NO; MEAN CORPUSCULAR HEMOGLOBIN 30.6 pg (27.0-34.8); MEAN CORPUSCULAR HGB CONC 32.4 g/dL (32.4-35.8); MEAN CORPUSCULAR VOLUME 94.4 fL (80-100); MEAN PLATELET VOLUME 9.6 fL (7.4-10.4); MONOCYTES # (AUTO) 0.46 x10^3/uL (0.2-0.8); MONOCYTES % (AUTO) 7 % (2-9); NEUTROPHILS # (AUTO) 3.89 x10^3/uL (1.8-6.8); NEUTROPHILS % (AUTO) 57 % (42-75); PLATELET COUNT 175 x10^3/uL (130-400); RED BLOOD COUNT 2.89 x10^6/uL (3.82-5.3); RED CELL DISTRIBUTION WIDTH 14.5 % (9.6-15.2)
[2019-08-27 06:15] LABS: ALBUMIN 2.9 g/dL (3.4-5.0); ANION GAP 9 mmol/L (5-15); CALCIUM 7.9 mg/dL (8.5-10.1); CHLORIDE 107 mmol/L (98-107)
[2019-08-27] MEDS: INSULIN LISPRO 100 UNITS/ML, PEN SQ-INSULIN SCH ×4 (07:00→21:00)
[2019-08-27 07:49] VITALS: BP 130/69
[2019-08-27] MEDS: SODIUM CHLORIDE FLUSH 10ML SYR IVF SCH ×2 (09:00→21:41)
[2019-08-27] MEDS: LACTULOSE 20 GM/30 ML UDC PO SCH ×3 (11:50→21:41)
[2019-08-27] MEDS: DOCUSATE 100 MG CAPSULE PO SCH ×2 (11:50→21:40)
[2019-08-27] MEDS: ESCITALOPRAM 10MG TABLET PO SCH (11:50)
[2019-08-27 15:05] VITALS: BP 128/75
[2019-08-27 18:55] VITALS: BP 113/64
[2019-08-27] MEDS: MELATONIN 5 MG TABLET PO SCH (21:40)
[2019-08-27] MEDS: INSULIN GLARGINE 100 UNITS/ML, PEN SQ-INSULIN SCH (21:41)
[2019-08-27] MEDS: ATORVASTATIN 40 MG TABLET PO SCH (21:41)
[2019-08-28] MEDS: HEPARIN 5,000 UNITS/ML, 1ML SQ SCH ×3 (00:59→16:19)
[2019-08-28 02:55] VITALS: BP 130/76
[2019-08-28 06:31] LABS: ANION GAP 10 mmol/L (5-15); CHLORIDE 105 mmol/L (98-107)
[2019-08-28 06:32] LABS: CREATININE 3.86 mg/dL (0.55-1.02)
[2019-08-28] MEDS: SODIUM CHLORIDE FLUSH 10ML SYR IVF SCH ×2 (09:43→21:06)
[2019-08-28] MEDS: DOCUSATE 100 MG CAPSULE PO SCH ×2 (09:44→21:05)
[2019-08-28] MEDS: LACTULOSE 20 GM/30 ML UDC PO SCH ×2 (09:45→21:05)
[2019-08-28] MEDS: ESCITALOPRAM 10MG TABLET PO SCH (09:46)
[2019-08-28 09:59] VITALS: BP 135/65
[2019-08-28] MEDS: INSULIN LISPRO 100 UNITS/ML, PEN SQ-INSULIN SCH ×4 (10:03→21:00)
[2019-08-28 15:23] VITALS: BP 127/72
[2019-08-28 18:36] VITALS: BP 122/72
[2019-08-28] MEDS: INSULIN GLARGINE 100 UNITS/ML, PEN SQ-INSULIN SCH (21:05)
[2019-08-28] MEDS: ATORVASTATIN 40 MG TABLET PO SCH (21:05)
[2019-08-28] MEDS: MELATONIN 5 MG TABLET PO SCH (21:05)
[2019-08-29 00:49] VITALS: BP 132/77
[2019-08-29] MEDS: HEPARIN 5,000 UNITS/ML, 1ML SQ SCH ×3 (02:38→17:21)
[2019-08-29 02:52] LABS: CHLORIDE 104 mmol/L (98-107)
[2019-08-29 03:13] LABS: ANION GAP 11 mmol/L (5-15); CALCIUM 8.1 mg/dL (8.5-10.1); CREATININE 4.53 mg/dL (0.55-1.02)
[2019-08-29 07:50] VITALS: BP 112/56
[2019-08-29] MEDS: ESCITALOPRAM 10MG TABLET PO SCH (08:15)
[2019-08-29] MEDS: INSULIN LISPRO 100 UNITS/ML, PEN SQ-INSULIN SCH ×4 (08:15→20:53)
[2019-08-29] MEDS: SODIUM CHLORIDE FLUSH 10ML SYR IVF SCH ×2 (08:15→20:54)
[2019-08-29] MEDS: LACTULOSE 20 GM/30 ML UDC PO SCH ×2 (08:15→20:52)
[2019-08-29] MEDS: DOCUSATE 100 MG CAPSULE PO SCH ×2 (08:15→20:52)
[2019-08-29 14:05] VITALS: BP 109/66
[2019-08-29 19:53] VITALS: BP 127/62
[2019-08-29] MEDS: MELATONIN 5 MG TABLET PO SCH (20:52)
[2019-08-29] MEDS: ATORVASTATIN 40 MG TABLET PO SCH (20:52)
[2019-08-29] MEDS: INSULIN GLARGINE 100 UNITS/ML, PEN SQ-INSULIN SCH (20:54)
[2019-08-30] MEDS: HEPARIN 5,000 UNITS/ML, 1ML SQ SCH ×3 (01:40→17:30)
[2019-08-30 01:47] VITALS: BP 127/71
[2019-08-30 06:55] VITALS: BP 132/73
[2019-08-30 07:29] LABS: ANION GAP 12 mmol/L (5-15); CALCIUM 8.2 mg/dL (8.5-10.1); CHLORIDE 106 mmol/L (98-107)
[2019-08-30] MEDS: DOCUSATE 100 MG CAPSULE PO SCH ×2 (07:59→20:28)
[2019-08-30] MEDS: LACTULOSE 20 GM/30 ML UDC PO SCH ×2 (08:00→20:28)
[2019-08-30] MEDS: SODIUM CHLORIDE FLUSH 10ML SYR IVF SCH ×2 (08:00→20:29)
[2019-08-30] MEDS: INSULIN LISPRO 100 UNITS/ML, PEN SQ-INSULIN SCH ×4 (08:00→20:29)
[2019-08-30] MEDS: ESCITALOPRAM 10MG TABLET PO SCH (08:00)
[2019-08-30 14:09] VITALS: BP 129/76
[2019-08-30 19:05] VITALS: BP 123/63
[2019-08-30] MEDS: MELATONIN 5 MG TABLET PO SCH (20:28)
[2019-08-30] MEDS: ATORVASTATIN 40 MG TABLET PO SCH (20:28)
[2019-08-30] MEDS: INSULIN GLARGINE 100 UNITS/ML, PEN SQ-INSULIN SCH (20:29)
[2019-08-31 00:54] VITALS: BP 107/64
[2019-08-31] MEDS: HEPARIN 5,000 UNITS/ML, 1ML SQ SCH ×3 (02:00→17:34)
[2019-08-31 05:31] LABS: ANION GAP 8 mmol/L (5-15); CALCIUM 8.3 mg/dL (8.5-10.1); CHLORIDE 106 mmol/L (98-107); CREATININE 3.48 mg/dL (0.55-1.02)
[2019-08-31] MEDS: INSULIN LISPRO 100 UNITS/ML, PEN SQ-INSULIN SCH ×4 (07:00→21:11)
[2019-08-31 07:50] VITALS: BP 101/53
[2019-08-31] MEDS: DOCUSATE 100 MG CAPSULE PO SCH ×2 (08:16→21:12)
[2019-08-31] MEDS: LACTULOSE 20 GM/30 ML UDC PO SCH ×2 (08:17→21:12)
[2019-08-31] MEDS: SODIUM CHLORIDE FLUSH 10ML SYR IVF SCH ×2 (08:17→21:11)
[2019-08-31] MEDS: ESCITALOPRAM 10MG TABLET PO SCH (09:00)
[2019-08-31] MEDS: INSULIN GLARGINE 100 UNITS/ML, PEN SQ-INSULIN SCH ×2 (09:00→21:12)
[2019-08-31 13:11] VITALS: BP 133/75
[2019-08-31] MEDS ORDERED: LIDOCAINE 1%, 20ML ONE (14:45)
[2019-08-31] MEDS ORDERED: FENTANYL PF 100 MCG/2ML ONE (15:08)
[2019-08-31] MEDS ORDERED: FLUMAZENIL 0.1 MG/1 ML, 5ML ONE (15:09)
[2019-08-31] MEDS ORDERED: NALOXONE 1 MG/ML, 2ML ONE (15:09)
[2019-08-31] MEDS ORDERED: MIDAZOLAM 1 MG/ML, 5ML ONE ×2 (15:09)
[2019-08-31] MEDS ORDERED: CEFAZOLIN PMX 1GM/50ML 50 ML ONE (15:33)
[2019-08-31 16:50] VITALS: BP 149/71
[2019-08-31 19:57] VITALS: BP 149/82
[2019-08-31] MEDS: MELATONIN 5 MG TABLET PO SCH (21:12)
[2019-08-31] MEDS: ATORVASTATIN 40 MG TABLET PO SCH (21:12)
[2019-08-31] MEDS: ACETAMINOPHEN 325 MG TABLET PO PRN (21:12)
[2019-09-01 00:31] VITALS: BP 115/61
[2019-09-01] MEDS: HEPARIN 5,000 UNITS/ML, 1ML SQ SCH ×3 (01:58→21:38)
[2019-09-01 04:11] VITALS: BP 120/70
[2019-09-01] MEDS: INSULIN LISPRO 100 UNITS/ML, PEN SQ-INSULIN SCH ×4 (07:00→21:00)
[2019-09-01 07:18] VITALS: BP 144/71
[2019-09-01] MEDS: SODIUM CHLORIDE FLUSH 10ML SYR IVF SCH ×2 (08:00→21:38)
[2019-09-01] MEDS: ACETAMINOPHEN 325 MG TABLET PO PRN (09:37)
[2019-09-01] MEDS ORDERED: ARANESP 100 MCG/ML **ESRD SQ SCH (11:00)
[2019-09-01] MEDS: DOCUSATE 100 MG CAPSULE PO SCH ×2 (12:07→21:38)
[2019-09-01] MEDS: LACTULOSE 20 GM/30 ML UDC PO SCH ×2 (12:07→21:38)
[2019-09-01] MEDS: ESCITALOPRAM 10MG TABLET PO SCH (12:07)
[2019-09-01] MEDS: INSULIN GLARGINE 100 UNITS/ML, PEN SQ-INSULIN SCH ×2 (12:13→21:00)
[2019-09-01 13:09] VITALS: BP 118/70
[2019-09-01 20:37] VITALS: BP 138/73
[2019-09-01] MEDS: ATORVASTATIN 40 MG TABLET PO SCH (21:38)
[2019-09-01] MEDS: MELATONIN 5 MG TABLET PO SCH (21:38)
[2019-09-02 01:31] VITALS: BP 138/73
[2019-09-02] MEDS: HEPARIN 5,000 UNITS/ML, 1ML SQ SCH ×3 (05:06→21:12)
[2019-09-02 07:00] VITALS: BP 120/72
[2019-09-02] MEDS: INSULIN GLARGINE 100 UNITS/ML, PEN SQ-INSULIN SCH ×2 (07:56→21:12)
[2019-09-02] MEDS: ESCITALOPRAM 10MG TABLET PO SCH (07:56)
[2019-09-02] MEDS: LACTULOSE 20 GM/30 ML UDC PO SCH ×2 (07:56→21:12)
[2019-09-02] MEDS: DOCUSATE 100 MG CAPSULE PO SCH ×2 (07:56→21:12)
[2019-09-02] MEDS: SODIUM CHLORIDE FLUSH 10ML SYR IVF SCH ×2 (07:57→21:13)
[2019-09-02] MEDS: INSULIN LISPRO 100 UNITS/ML, PEN SQ-INSULIN SCH ×4 (07:57→21:12)
[2019-09-02] MEDS: ACETAMINOPHEN 325 MG TABLET PO PRN (08:09)
[2019-09-02 12:22] VITALS: BP 138/67
[2019-09-02] MEDS: POLYETHYLENE GLYCOL 17 GM PACKET PO PRN (16:06)
[2019-09-02 19:50] VITALS: BP 149/75
[2019-09-02] MEDS: MELATONIN 5 MG TABLET PO SCH (21:12)
[2019-09-02] MEDS: ATORVASTATIN 40 MG TABLET PO SCH (21:13)
[2019-09-03 01:59] VITALS: BP 156/73
[2019-09-03 05:15] LABS: ANION GAP 7 mmol/L (5-15); CALCIUM 8.6 mg/dL (8.5-10.1); CHLORIDE 108 mmol/L (98-107)
[2019-09-03 05:16] LABS: CREATININE 4.29 mg/dL (0.55-1.02)
[2019-09-03] MEDS: HEPARIN 5,000 UNITS/ML, 1ML SQ SCH ×2 (06:08→13:00)
[2019-09-03 06:50] LABS: BASOPHILS # (AUTO) 0.03 x10^3/uL (0-0.1); BASOPHILS % (AUTO) 1 % (0-1); EOSINOPHILS # (AUTO) 0.22 x10^3/uL (0-0.4); EOSINOPHILS % (AUTO) 4 % (1-7); LYMPHOCYTES # (AUTO) 2.72 x10^3/uL (1-3.4); LYMPHOCYTES % (AUTO) 43 % (22-44); MD NO; MEAN CORPUSCULAR HEMOGLOBIN 31.9 pg (27.0-34.8); MEAN CORPUSCULAR HGB CONC 32.8 g/dL (32.4-35.8); MEAN CORPUSCULAR VOLUME 97.1 fL (80-100); MEAN PLATELET VOLUME 10.1 fL (7.4-10.4); MONOCYTES # (AUTO) 0.47 x10^3/uL (0.2-0.8); MONOCYTES % (AUTO) 7 % (2-9); NEUTROPHILS # (AUTO) 2.92 x10^3/uL (1.8-6.8); NEUTROPHILS % (AUTO) 46 % (42-75); PLATELET COUNT 195 x10^3/uL (130-400); RED BLOOD COUNT 2.89 x10^6/uL (3.82-5.3); RED CELL DISTRIBUTION WIDTH 14.8 % (9.6-15.2)
[2019-09-03 07:37] VITALS: BP 154/74
[2019-09-03] MEDS: INSULIN LISPRO 100 UNITS/ML, PEN SQ-INSULIN SCH ×2 (08:25→11:00)
[2019-09-03] MEDS: ESCITALOPRAM 10MG TABLET PO SCH (08:25)
[2019-09-03] MEDS: LACTULOSE 20 GM/30 ML UDC PO SCH (08:25)
[2019-09-03] MEDS: DOCUSATE 100 MG CAPSULE PO SCH (08:25)
[2019-09-03] MEDS: SODIUM CHLORIDE FLUSH 10ML SYR IVF SCH (08:26)
[2019-09-03] MEDS: INSULIN GLARGINE 100 UNITS/ML, PEN SQ-INSULIN SCH (08:28)
[2019-09-03] MEDS ORDERED: DIPHENHYDRAMINE 25 MG CAPSULE PO ONE (12:00)
[2019-09-03 12:21] VITALS: BP 122/65
== END 2019-09-03 14:02 | disposition home or self-care (01) | DRG 674 ==
LOC: ED 14:31 → EDIP 14:32 → ED 14:53 → 4WST 16:39 → 4EST 08-24 21:15 → DCLOUNGE 09-03 13:50
PROVIDERS: ADMIT Internal Medicine; ATTEND Internal Medicine
PROC: B548ZZA Ultrasonography of Superior Vena Cava, Guidance (ICD-10-PCS; 2019-08-20)
PROC: 02HV33Z Insertion of Infusion Device into Superior Vena Cava, Percutaneous Approach (ICD-10-PCS; 2019-08-20)
PROC: B5181ZA Fluoroscopy of Superior Vena Cava using Low Osmolar Contrast, Guidance (ICD-10-PCS; 2019-08-20)
PROC: 5A1D70Z Performance of Urinary Filtration, Intermittent, Less than 6 Hours Per Day (ICD-10-PCS; 2019-08-20)
PROC: 5A1D70Z Performance of Urinary Filtration, Intermittent, Less than 6 Hours Per Day (ICD-10-PCS; 2019-08-21)
PROC: 5A1D70Z Performance of Urinary Filtration, Intermittent, Less than 6 Hours Per Day (ICD-10-PCS; 2019-08-22)
PROC: 0TB13ZX Excision of Left Kidney, Percutaneous Approach, Diagnostic (ICD-10-PCS; principal; 2019-08-24)
PROC: 5A1D70Z Performance of Urinary Filtration, Intermittent, Less than 6 Hours Per Day (ICD-10-PCS; 2019-08-24)
PROC: 5A1D70Z Performance of Urinary Filtration, Intermittent, Less than 6 Hours Per Day (ICD-10-PCS; 2019-08-27)
PROC: 5A1D70Z Performance of Urinary Filtration, Intermittent, Less than 6 Hours Per Day (ICD-10-PCS; 2019-08-30)
PROC: 0JH63XZ Insertion of Tunneled Vascular Access Device into Chest Subcutaneous Tissue and Fascia, Percutaneous Approach (ICD-10-PCS; 2019-08-31)
PROC: 02HV33Z Insertion of Infusion Device into Superior Vena Cava, Percutaneous Approach (ICD-10-PCS; 2019-08-31)
PROC: B548ZZA Ultrasonography of Superior Vena Cava, Guidance (ICD-10-PCS; 2019-08-31)
DX: N17.0 Acute kidney failure with tubular necrosis (principal); E87.2 Acidosis; L02.31 Cutaneous abscess of buttock; E44.0 Moderate protein-calorie malnutrition; D64.9 Anemia, unspecified; F32.9 Major depressive disorder, single episode, unspecified; J44.9 Chronic obstructive pulmonary disease, unspecified; E11.9 Type 2 diabetes mellitus without complications; E78.5 Hyperlipidemia, unspecified; I10 Essential (primary) hypertension; Z66 Do not resuscitate; Z79.2 Long term (current) use of antibiotics; Z79.84 Long term (current) use of oral hypoglycemic drugs; Z79.899 Other long term (current) drug therapy; Z99.2 Dependence on renal dialysis
CPT/HCPCS: 36415; 36556; 36565; 50200; 76770; 76937; 77001; 77012; 80048; 80053; 80069; 80175; 81001; 81050; 82436; 82550; 82570; 82607; 82728; 82962; 83036; 83516; 83520; 83540; 83550; 83690; 83735; 83883; 83970; 84133; 84155; 84156; 84165; 84166; 84300; 85025; 85610; 86038; 86039; 86160; 86162; 86225; 86256; 86480; 86704; 86706; 86708; 86803; 87086; 87340; 88300; 90686; 90935; 93005; 99156; 99157; 99291; C1894; G0378; J0690; J0882; J1644; J2250; J3010; Q0162; C1751; C1769; J1642; J1815; J2310; Q0163

== ENCOUNTER 2019-11-11 14:17 | Emergency (ER) | payer MEDICARE ==
[~2019-11-11] VITALS: Ht 167.6 cm; Wt 104.0 kg
[~2019-11-11 14:17] MED LIST changes: +ASPI-650 PO; +ASPI1TAB54 PO; +OXYB5TAB10 PO
--- NOTE | 2019-11-11 14:48 | NUR ---
PATIENT BROUGHT BACK FROM TRIAGE WITH CHIEF COMPLAINT OF FEELING DIZZY WITH NAUSEA STARTING THIS MORNING. NO LOC REPORTED. PATIENT SENT BY ONCALL PRIMARY MD CRUZ. PATIENT STARTED DIALYSIS AUG 2019 (TUE//TUE). NO OTHER COMPLAINTS AT THIS TIME. DAUGHTER AT BEDSIDE.
[2019-11-11] MEDS ORDERED: INSU100C SQ-INSULIN (14:57)
[2019-11-11] MEDS ORDERED: ALEN70TA6 PO (14:57)
[2019-11-11] MEDS ORDERED: DOCU-131 PO (14:57)
[2019-11-11] MEDS ORDERED: UMEC1DIS PO (14:57)
[2019-11-11] MEDS ORDERED: SEVE800T8 PO (14:58)
[2019-11-11 15:52] LABS: BASOPHILS # (AUTO) 0.02 x10^3/uL (0-0.1); BASOPHILS % (AUTO) 0 % (0-1); EOSINOPHILS # (AUTO) 0.14 x10^3/uL (0-0.4); EOSINOPHILS % (AUTO) 2 % (1-7); LYMPHOCYTES % (AUTO) 23 % (22-44); MD NO; MEAN CORPUSCULAR HEMOGLOBIN 29.9 pg (27.0-34.8); MEAN CORPUSCULAR VOLUME 93.6 fL (80-100); MEAN PLATELET VOLUME 8.2 fL (7.4-10.4); MONOCYTES # (AUTO) 0.29 x10^3/uL (0.2-0.8); MONOCYTES % (AUTO) 4 % (2-9); NEUTROPHILS # (AUTO) 4.54 x10^3/uL (1.8-6.8); NEUTROPHILS % (AUTO) 70 % (42-75); PLATELET COUNT 280 x10^3/uL (130-400); RED BLOOD COUNT 3.76 x10^6/uL (3.82-5.3); RED CELL DISTRIBUTION WIDTH 15.3 % (9.6-15.2)
[2019-11-11 15:55] LABS: ANION GAP 8 mmol/L (5-15); CHLORIDE 100 mmol/L (98-107); CREATININE 5.49 mg/dL (0.55-1.02)
--- NOTE | 2019-11-11 15:58 | NUR ---
ASSISTED PATIENT TO BATHROOM, NOT ABLE TO URINATE AT THIS TIME.
--- NOTE | 2019-11-11 17:03 | NUR ---
URINE COLLECTED, PT RESTING IN BED. FAMILY AT BEDSIDE.
[2019-11-11 17:19] LABS: MICROSCOPIC AUTO
[2019-11-11 17:21] LABS: CULTURE INDICATED? NO
[2019-11-11 18:02] VITALS: BP 172/66
--- NOTE | 2019-11-11 18:02 | NUR ---
PT RESTING IN BED, CALL LIGHT IN REACH.
--- NOTE | 2019-11-11 18:18 | NUR ---
DISCHARGE INSTRUCTIONS REVIEWED
== END 2019-11-11 18:41 | disposition home or self-care (01) ==
LOC: ED 15:29
DX: R55 Syncope and collapse (principal); R42 Dizziness and giddiness; R11.2 Nausea with vomiting, unspecified; I10 Essential (primary) hypertension; E11.9 Type 2 diabetes mellitus without complications; Z87.891 Personal history of nicotine dependence
CPT/HCPCS: 36415; 80048; 81001; 85025; 93005; 99284

== ENCOUNTER 2020-04-14 12:14 | Day surgery (SDC) | payer MEDICARE ==
[~2020-04-14] VITALS: Ht 167.6 cm; Wt 96.2 kg
[~2020-04-14 12:14] MED LIST changes: +ASPI-496 PO; +B,C/1TAB PO; +CHOL10003 PO; +DOCU-131 PO; +INSU100C SQ-INSULIN; +INSU100I11 SC; +INSU100V35 SC; +LISI-170 PO; +SEVE800T8 PO
[2020-04-14] MEDS ORDERED: SODIUM CHLORIDE 0.9% 1,000 ML IV SCH (12:45)
[2020-04-14 12:56] VITALS: BP 129/80
[2020-04-14] MEDS ORDERED: CHLORHEXIDINE 15 ML UDC MM ONE (13:00)
[2020-04-14] MEDS ORDERED: CHLORHEXIDINE 15 ML UDC ONE (13:00)
[2020-04-14] MEDS ORDERED: LIDOCAINE-MPF 1%, 2ML INFIL ONE (13:00)
[2020-04-14] MEDS ORDERED: PROTAMINE SULFATE 10 MG/ML, 5ML ONE (13:47)
[2020-04-14] MEDS ORDERED: BUPIVACAINE/PF 0.5% ONE (13:47)
[2020-04-14] MEDS ORDERED: HEPARIN 1,000 UNITS/ML, 10ML ONE ×2 (13:48→15:08)
[2020-04-14] MEDS ORDERED: PROPOFOL 50 ML ONE (13:58)
[2020-04-14] MEDS ORDERED: FENTANYL PF 250 MCG/5ML ONE (14:02)
[2020-04-14] MEDS ORDERED: CEFAZOLIN 1,000 MG ONE (14:27)
[2020-04-14] MEDS ORDERED: PROPOFOL 10 MG/ML, 20ML ONE (15:10)
[2020-04-14] MEDS ORDERED: ONDANSETRON 2MG/ML, 2ML ONE (15:10)
[2020-04-14] MEDS ORDERED: MIDAZOLAM 1 MG/ML, 2ML IV PRN (15:30)
[2020-04-14] MEDS ORDERED: morphine SULFATE 10 MG/ML, 1ML IVPush PRN (15:30)
[2020-04-14] MEDS ORDERED: ONDANSETRON 2MG/ML, 2ML IVPush PRN (15:30)
[2020-04-14] MEDS ORDERED: DIAZEPAM 5 MG/ML, 2ML IVPush PRN (15:30)
[2020-04-14] MEDS ORDERED: FENTANYL PF 100 MCG/2ML IV PRN (15:30)
[2020-04-14] MEDS ORDERED: OXYcodone 5 MG/5 ML ORAL.SOL UDC PO PRN (15:30)
[2020-04-14] MEDS ORDERED: PROMETHAZINE 25 MG/ML, 1ML IVPush PRN (15:30)
[2020-04-14] MEDS ORDERED: EPHEDRINE 50 MG/ML, 1ML IM PRN (15:30)
[2020-04-14] MEDS ORDERED: EPHEDRINE 50 MG/ML, 1ML IVPush PRN (15:30)
[2020-04-14] MEDS ORDERED: OXYcodone 5 MG/5 ML ORAL.SOL UDC ONE (16:16)
== END 2020-04-14 18:20 | disposition home or self-care (01) ==
LOC: OUT 12:14
PROVIDERS: ATTEND Surgery
DX: E11.22 Type 2 diabetes mellitus with diabetic chronic kidney disease (principal); I12.0 Hypertensive chronic kidney disease with stage 5 chronic kidney disease or end stage renal disease; N18.6 End stage renal disease; J44.9 Chronic obstructive pulmonary disease, unspecified; E78.5 Hyperlipidemia, unspecified; Z79.82 Long term (current) use of aspirin; Z79.4 Long term (current) use of insulin; Z79.899 Other long term (current) drug therapy; Z87.891 Personal history of nicotine dependence; Z90.710 Acquired absence of both cervix and uterus; Z98.890 Other specified postprocedural states; Z82.49 Family history of ischemic heart disease and other diseases of the circulatory system; Z83.3 Family history of diabetes mellitus
CPT/HCPCS: 36819; 82962; J0690; J1644; J2405; J2704; J3010; J7030; J2720

== ENCOUNTER 2020-04-15 15:53 | Inpatient (IN) | payer MEDICARE ==
[~2020-04-15] VITALS: Ht 167.6 cm; Wt 102.8 kg
--- NOTE | 2020-04-15 16:14 | NUR ---
PT BIB EMS FOR BLEEDING FISTULA. PT GOT FISTULA PLACED YESTERDAY AND THE PTS DRESSING WAS RED WITH BLOOD. THE PTS FAMILY WAS WORRIED IT WAS STILL BLEEDING AND CALLED 911. THE PT REPORTS NO OTHER AILMENTS AT THIS TIME. THE PT DOES SAY HER ARM IS SORE AND SHE TOOK "PAIN MEDICINE" CARPENTRY SPECIALIST. PT IS RESTING IN [facility]. CONNECTED TO MONITORING EQUIPMENT.
--- NOTE | 2020-04-15 17:02 | NUR ---
BREAK RN: PT CURRENTLY RESTING ON [address]. NO ACUTE DISTRESS NOTED AT THIS TIME. PT AWARE THAT WE ARE WAITING FOR ADMISSION. PT AO X 4. SKIN PWD. RESP EVEN AND UNLABORED. CALL LIGHT WITHIN REACH. WILL CONT TO MONITOR PT.
[2020-04-15 17:05] LABS: BASOPHILS # (AUTO) 0.01 x10^3/uL (0-0.1); BASOPHILS % (AUTO) 0 % (0-1); EOSINOPHILS # (AUTO) 0.11 x10^3/uL (0-0.4); EOSINOPHILS % (AUTO) 1 % (1-7); LYMPHOCYTES # (AUTO) 0.55 x10^3/uL (1-3.4); LYMPHOCYTES % (AUTO) 5 % (22-44); MD NO; MEAN CORPUSCULAR HEMOGLOBIN 30.4 pg (27.0-34.8); MEAN CORPUSCULAR HGB CONC 32.5 g/dL (32.4-35.8); MEAN CORPUSCULAR VOLUME 93.4 fL (80-100); MEAN PLATELET VOLUME 7.7 fL (7.4-10.4); MONOCYTES # (AUTO) 0.07 x10^3/uL (0.2-0.8); MONOCYTES % (AUTO) 1 % (2-9); NEUTROPHILS # (AUTO) 9.67 x10^3/uL (1.8-6.8); NEUTROPHILS % (AUTO) 93 % (42-75); PLATELET COUNT 295 x10^3/uL (130-400); RED BLOOD COUNT 2.97 x10^6/uL (3.82-5.3); RED CELL DISTRIBUTION WIDTH 15.8 % (9.6-15.2)
[2020-04-15 17:18] LABS: ALANINE AMINOTRANSFERASE 17 U/L (12-78); ALBUMIN 2.7 g/dL (3.4-5.0); ANION GAP 9 mmol/L (5-15); CALCIUM 8.4 mg/dL (8.5-10.1); CHLORIDE 96 mmol/L (98-107)
[2020-04-15 17:20] LABS: ALKALINE PHOSPHATASE 72 U/L (45-117); BILIRUBIN,TOTAL 0.3 mg/dL (0.2-1.0); TOTAL PROTEIN 6.9 g/dL (6.4-8.2)
[2020-04-15] MEDS ORDERED: DIPHENHYDRAMINE 50 MG/ML, 1ML ONE (17:27)
[2020-04-15] MEDS ORDERED: MORPHINE SULFATE 4 MG/ML, 1ML ONE (17:27)
[2020-04-15] MEDS ORDERED: MORPHINE SULFATE 4 MG/ML, 1ML IVPush PRN (17:30)
[2020-04-15] MEDS ORDERED: DIPHENHYDRAMINE 50 MG/ML, 1ML IVPush ONE (17:30)
[2020-04-15 17:45] LABS: INTERNATIONAL NORMALIZED RATIO 0.94 (0.93-1.1)
[2020-04-15] MEDS ORDERED: CEFTRIAXONE PMX 1GM/50ML 50 ML IV ONE (18:00)
--- NOTE | 2020-04-15 18:14 | NUR ---
AWAITING DIALYSIS NURSE BEFORE STARTING ABX. PER
[2020-04-15] MEDS ORDERED: BISACODYL 10 MG SUPP PR PRN (19:00)
[2020-04-15] MEDS ORDERED: SEVELAMER CARBONATE 800MG TAB PO SCH (19:00)
[2020-04-15] MEDS ORDERED: ONDANSETRON ODT 4 MG PO PRN (19:00)
[2020-04-15] MEDS ORDERED: POLYETHYLENE GLYCOL 17 GM PACKET PO PRN (19:00)
[2020-04-15] MEDS ORDERED: SEVELAMER MC SCH (20:30)
[2020-04-15 20:37] VITALS: BP 135/59
[2020-04-15] MEDS ORDERED: DEXTROSE 50%, 50ML SYRINGE IVPush PRN (22:00)
[2020-04-15] MEDS ORDERED: DEXTROSE 4 GM TAB.CHEW PO PRN (22:00)
[2020-04-15] MEDS ORDERED: GLUCAGON 1 MG IM PRN (22:00)
[2020-04-15] MEDS: INSULIN GLARGINE 100 UNITS/ML, PEN SQ-INSULIN SCH (22:42)
[2020-04-15] MEDS: INSULIN LISPRO 100 UNITS/ML, PEN SQ-INSULIN SCH (22:42)
[2020-04-15] MEDS: SODIUM CHLORIDE FLUSH 10ML SYR IVF SCH ×2 (23:00)
[2020-04-15] MEDS: DOCUSATE 100 MG CAPSULE PO SCH (23:02)
[2020-04-15] MEDS: ATORVASTATIN 40 MG TABLET PO SCH (23:02)
[2020-04-15] MEDS: BUPROPION 75 MG TABLET PO SCH (23:02)
[2020-04-15] MEDS: ACETAMINOPHEN 325 MG TABLET PO PRN (23:06)
[2020-04-16 02:00] VITALS: BP 141/64
[2020-04-16] MEDS ORDERED: VANCOMYCIN PMX 1GM/200ML 200 ML IV ONE (02:00)
[2020-04-16 02:03] LABS: CELLS COUNTED 4
[2020-04-16] MEDS: PIPERACILLIN/TAZO/PMX 2.25GM 50 ML IVPB SCH ×4 (02:45→20:16)
[2020-04-16] MEDS: DOCUSATE 100 MG CAPSULE PO SCH ×4 (06:09→20:15)
[2020-04-16 06:16] LABS: ANION GAP 8 mmol/L (5-15); CALCIUM 8.3 mg/dL (8.5-10.1); CHLORIDE 96 mmol/L (98-107)
[2020-04-16 06:17] LABS: MEAN CORPUSCULAR HEMOGLOBIN 30.4 pg (27.0-34.8); MEAN CORPUSCULAR HGB CONC 32.5 g/dL (32.4-35.8); MEAN CORPUSCULAR VOLUME 93.6 fL (80-100); MEAN PLATELET VOLUME 7.9 fL (7.4-10.4); PLATELET COUNT 267 x10^3/uL (130-400); RED BLOOD COUNT 2.63 x10^6/uL (3.82-5.3)
[2020-04-16 06:19] LABS: CREATININE 4.76 mg/dL (0.55-1.02)
[2020-04-16] MEDS ORDERED: ALENDRONATE 70 MG TABLET PO SCH (06:30)
[2020-04-16 07:35] LABS: BASOPHILS # (AUTO) 0.01 x10^3/uL (0-0.1); BASOPHILS % (AUTO) 0 % (0-1); EOSINOPHILS # (AUTO) 0.14 x10^3/uL (0-0.4); EOSINOPHILS % (AUTO) 1 % (1-7); LYMPHOCYTES # (AUTO) 1.11 x10^3/uL (1-3.4); LYMPHOCYTES % (AUTO) 9 % (22-44); MD SCAN; MONOCYTES # (AUTO) 0.23 x10^3/uL (0.2-0.8); MONOCYTES % (AUTO) 2 % (2-9); NEUTROPHILS % (AUTO) 88 % (42-75)
[2020-04-16 07:44] VITALS: BP 95/56
[2020-04-16] MEDS: INSULIN LISPRO 100 UNITS/ML, PEN SQ-INSULIN SCH ×3 (08:00→20:17)
[2020-04-16] MEDS: LAMOTRIGINE 25 MG TABLET PO SCH (08:32)
[2020-04-16] MEDS: CHOLECALCIFEROL 5,000u TAB PO SCH (08:32)
[2020-04-16] MEDS: ASPIRIN 81 MG TABLET EC PO SCH (08:32)
[2020-04-16] MEDS: BUPROPION 75 MG TABLET PO SCH ×2 (08:32→20:16)
[2020-04-16] MEDS: ESCITALOPRAM 10MG TABLET PO SCH (08:32)
[2020-04-16] MEDS: SEVELAMER CARBONATE 800MG TAB PO SCH ×3 (08:32→16:12)
[2020-04-16] MEDS: SODIUM CHLORIDE FLUSH 10ML SYR IVF SCH ×4 (08:33→20:18)
[2020-04-16] MEDS: MULTIVITAMINS/MINERALS TABLET PO SCH (08:33)
[2020-04-16] MEDS ORDERED: LISINOPRIL 20 MG TABLET PO SCH (09:00)
[2020-04-16] MEDS ORDERED: D3 HOMEMEDPO SCH (09:00)
[2020-04-16] MEDS ORDERED: FOLIC HOMEMEDPO SCH (09:00)
[2020-04-16] MEDS ORDERED: ZINC HOMEMEDPO SCH (09:00)
[2020-04-16] MEDS ORDERED: [UNRECOGNIZED DRUG - OTHER] HOMEMEDPO SCH (09:00)
[2020-04-16] MEDS ORDERED: SELENOMETH HOMEMEDPO SCH (09:00)
[2020-04-16 12:05] VITALS: BP 115/58
[2020-04-16 14:57] LABS: MICROSCOPIC INDICATED
[2020-04-16] MEDS ORDERED: ARANESP 100 MCG/ML **ESRD SQ SCH (16:30)
[2020-04-16 19:33] VITALS: BP 132/63
[2020-04-16] MEDS: ATORVASTATIN 40 MG TABLET PO SCH (20:15)
[2020-04-16] MEDS: INSULIN GLARGINE 100 UNITS/ML, PEN SQ-INSULIN SCH (20:16)
[2020-04-17 00:09] VITALS: BP 120/82
[2020-04-17] MEDS: PIPERACILLIN/TAZO/PMX 2.25GM 50 ML IVPB SCH ×3 (02:00→15:56)
[2020-04-17] MEDS: DOCUSATE 100 MG CAPSULE PO SCH ×4 (05:46→21:38)
[2020-04-17 06:25] LABS: ANION GAP 11 mmol/L (5-15); BASOPHILS # (AUTO) 0.02 x10^3/uL (0-0.1); BASOPHILS % (AUTO) 0 % (0-1); CALCIUM 8.2 mg/dL (8.5-10.1); CHLORIDE 97 mmol/L (98-107); CREATININE 6.48 mg/dL (0.55-1.02); EOSINOPHILS # (AUTO) 0.44 x10^3/uL (0-0.4); EOSINOPHILS % (AUTO) 6 % (1-7); LYMPHOCYTES # (AUTO) 1.34 x10^3/uL (1-3.4); LYMPHOCYTES % (AUTO) 18 % (22-44); MD NO; MEAN CORPUSCULAR HEMOGLOBIN 30.5 pg (27.0-34.8); MEAN CORPUSCULAR HGB CONC 32.6 g/dL (32.4-35.8); MEAN CORPUSCULAR VOLUME 93.5 fL (80-100); MEAN PLATELET VOLUME 7.5 fL (7.4-10.4); MONOCYTES # (AUTO) 0.42 x10^3/uL (0.2-0.8); MONOCYTES % (AUTO) 6 % (2-9); NEUTROPHILS # (AUTO) 5.42 x10^3/uL (1.8-6.8); NEUTROPHILS % (AUTO) 71 % (42-75); PLATELET COUNT 285 x10^3/uL (130-400); RED BLOOD COUNT 2.53 x10^6/uL (3.82-5.3); RED CELL DISTRIBUTION WIDTH 16.3 % (9.6-15.2)
[2020-04-17] MEDS: INSULIN LISPRO 100 UNITS/ML, PEN SQ-INSULIN SCH ×4 (07:00→21:38)
[2020-04-17 08:00] VITALS: BP 119/49
[2020-04-17] MEDS: SEVELAMER CARBONATE 800MG TAB PO SCH ×3 (08:28→15:56)
[2020-04-17] MEDS: ASPIRIN 81 MG TABLET EC PO SCH (08:28)
[2020-04-17] MEDS: BUPROPION 75 MG TABLET PO SCH ×2 (08:28→21:38)
[2020-04-17] MEDS: MULTIVITAMINS/MINERALS TABLET PO SCH (08:29)
[2020-04-17] MEDS: LAMOTRIGINE 25 MG TABLET PO SCH (08:29)
[2020-04-17] MEDS: CHOLECALCIFEROL 5,000u TAB PO SCH (08:29)
[2020-04-17] MEDS: ESCITALOPRAM 10MG TABLET PO SCH (08:29)
[2020-04-17] MEDS: SODIUM CHLORIDE FLUSH 10ML SYR IVF SCH ×2 (08:33→21:00)
[2020-04-17] MEDS: LISINOPRIL 10 MG TABLET PO SCH (09:00)
[2020-04-17 13:05] VITALS: BP 130/70
[2020-04-17] MEDS: SENNA/DOCUSATE TABLET PO SCH (14:00)
[2020-04-17] MEDS ORDERED: POLYETHYLENE GLYCOL 17 GM PACKET PO PRN (14:00)
[2020-04-17] MEDS: GENTAMICIN CRM 0.1%, 30GM TP SCH ×2 (14:00→21:00)
[2020-04-17] MEDS ORDERED: PIPERACILLIN/TAZO 0.75 GM in SODIUM CHLORIDE 0.9% 50 ML IVPB PRN (18:00)
[2020-04-17 19:10] VITALS: BP 129/67
[2020-04-17] MEDS: ATORVASTATIN 40 MG TABLET PO SCH (21:38)
[2020-04-17] MEDS: INSULIN GLARGINE 100 UNITS/ML, PEN SQ-INSULIN SCH (21:39)
[2020-04-18 01:02] VITALS: BP 133/67
[2020-04-18] MEDS: PIPERACILLIN/TAZO/PMX 2.25GM 50 ML IVPB SCH ×2 (02:00→14:00)
[2020-04-18] MEDS: GENTAMICIN CRM 0.1%, 30GM TP SCH ×4 (05:58→21:00)
[2020-04-18 06:28] LABS: BASOPHILS # (AUTO) 0.03 x10^3/uL (0-0.1); BASOPHILS % (AUTO) 0 % (0-1); EOSINOPHILS # (AUTO) 0.34 x10^3/uL (0-0.4); EOSINOPHILS % (AUTO) 5 % (1-7); LYMPHOCYTES # (AUTO) 1.61 x10^3/uL (1-3.4); LYMPHOCYTES % (AUTO) 22 % (22-44); MD NO; MEAN CORPUSCULAR HGB CONC 32.3 g/dL (32.4-35.8); MEAN CORPUSCULAR VOLUME 92.9 fL (80-100); MEAN PLATELET VOLUME 7.6 fL (7.4-10.4); MONOCYTES # (AUTO) 0.44 x10^3/uL (0.2-0.8); MONOCYTES % (AUTO) 6 % (2-9); NEUTROPHILS # (AUTO) 5.01 x10^3/uL (1.8-6.8); NEUTROPHILS % (AUTO) 67 % (42-75); PLATELET COUNT 340 x10^3/uL (130-400); RED BLOOD COUNT 2.66 x10^6/uL (3.82-5.3); RED CELL DISTRIBUTION WIDTH 15.9 % (9.6-15.2)
[2020-04-18] MEDS: ACETAMINOPHEN 325 MG TABLET PO PRN (06:29)
[2020-04-18] MEDS: DOCUSATE 100 MG CAPSULE PO SCH ×4 (06:29→21:11)
[2020-04-18 06:37] LABS: ANION GAP 7 mmol/L (5-15); CALCIUM 8.4 mg/dL (8.5-10.1); CHLORIDE 101 mmol/L (98-107); CREATININE 5.06 mg/dL (0.55-1.02)
[2020-04-18 06:55] VITALS: BP 137/67
[2020-04-18] MEDS: INSULIN LISPRO 100 UNITS/ML, PEN SQ-INSULIN SCH ×4 (07:00→21:13)
[2020-04-18] MEDS: SENNA/DOCUSATE TABLET PO SCH (08:36)
[2020-04-18] MEDS: ASPIRIN 81 MG TABLET EC PO SCH (08:36)
[2020-04-18] MEDS: SODIUM CHLORIDE FLUSH 10ML SYR IVF SCH ×2 (08:36→21:14)
[2020-04-18] MEDS: MULTIVITAMINS/MINERALS TABLET PO SCH (08:36)
[2020-04-18] MEDS: SEVELAMER CARBONATE 800MG TAB PO SCH ×3 (08:36→15:45)
[2020-04-18] MEDS: ESCITALOPRAM 10MG TABLET PO SCH (08:36)
[2020-04-18] MEDS: BUPROPION 75 MG TABLET PO SCH ×2 (08:37→21:12)
[2020-04-18] MEDS: LAMOTRIGINE 25 MG TABLET PO SCH (08:37)
[2020-04-18] MEDS: LISINOPRIL 10 MG TABLET PO SCH (08:37)
[2020-04-18] MEDS: CHOLECALCIFEROL 5,000u TAB PO SCH (08:37)
[2020-04-18 13:14] VITALS: BP 116/56
[2020-04-18] MEDS: AMPICILLIN 1 GM in SODIUM CHLORIDE 0.9% 100 ML IV SCH (13:43)
[2020-04-18] MEDS ORDERED: metroNIDAZOLE 500 MG TABLET ONE (15:41)
[2020-04-18] MEDS: metroNIDAZOLE 500 MG TABLET PO SCH (15:45)
[2020-04-18 19:17] VITALS: BP 150/67
[2020-04-18] MEDS ORDERED: LINEZOLID 600 MG TABLET PO SCH (21:00)
[2020-04-18] MEDS: ATORVASTATIN 40 MG TABLET PO SCH (21:11)
[2020-04-18] MEDS: MELATONIN 3 MG TABLET PO PRN (21:12)
[2020-04-18] MEDS: INSULIN GLARGINE 100 UNITS/ML, PEN SQ-INSULIN SCH (21:14)
[2020-04-19 02:39] VITALS: BP 133/60
[2020-04-19] MEDS: metroNIDAZOLE 500 MG TABLET PO SCH ×2 (03:35→16:11)
[2020-04-19] MEDS: GENTAMICIN CRM 0.1%, 30GM TP SCH ×4 (05:22→20:08)
[2020-04-19] MEDS: DOCUSATE 100 MG CAPSULE PO SCH ×4 (05:22→20:08)
[2020-04-19] MEDS: SEVELAMER CARBONATE 800MG TAB PO SCH ×3 (07:00→16:12)
[2020-04-19 07:16] VITALS: BP 131/67
[2020-04-19] MEDS: INSULIN LISPRO 100 UNITS/ML, PEN SQ-INSULIN SCH ×4 (08:06→20:10)
[2020-04-19] MEDS: ACETAMINOPHEN 325 MG TABLET PO PRN ×2 (10:30→20:54)
[2020-04-19] MEDS: SODIUM CHLORIDE FLUSH 10ML SYR IVF SCH ×2 (11:22→20:10)
[2020-04-19] MEDS: ESCITALOPRAM 10MG TABLET PO SCH (11:23)
[2020-04-19] MEDS: LAMOTRIGINE 25 MG TABLET PO SCH (11:23)
[2020-04-19] MEDS: CHOLECALCIFEROL 5,000u TAB PO SCH (11:25)
[2020-04-19] MEDS: ASPIRIN 81 MG TABLET EC PO SCH (11:25)
[2020-04-19] MEDS: BUPROPION 75 MG TABLET PO SCH ×2 (11:26→20:08)
[2020-04-19] MEDS: SENNA/DOCUSATE TABLET PO SCH (11:26)
[2020-04-19] MEDS: MULTIVITAMINS/MINERALS TABLET PO SCH (11:26)
[2020-04-19] MEDS: LISINOPRIL 10 MG TABLET PO SCH (11:27)
[2020-04-19 14:00] VITALS: BP 118/62
[2020-04-19 19:40] VITALS: BP 144/65
[2020-04-19] MEDS: ATORVASTATIN 40 MG TABLET PO SCH (20:08)
[2020-04-19] MEDS: INSULIN GLARGINE 100 UNITS/ML, PEN SQ-INSULIN SCH (20:09)
[2020-04-19] MEDS: MELATONIN 3 MG TABLET PO PRN (20:42)
[2020-04-19] MEDS: AMPICILLIN 1 GM in SODIUM CHLORIDE 0.9% 100 ML IV SCH (20:42)
[2020-04-20 01:12] VITALS: BP 112/59
[2020-04-20] MEDS: metroNIDAZOLE 500 MG TABLET PO SCH ×2 (03:15→16:40)
[2020-04-20] MEDS: GENTAMICIN CRM 0.1%, 30GM TP SCH ×4 (05:38→20:12)
[2020-04-20] MEDS: DOCUSATE 100 MG CAPSULE PO SCH ×4 (05:38→20:10)
[2020-04-20 06:53] VITALS: BP 111/49
[2020-04-20] MEDS: INSULIN LISPRO 100 UNITS/ML, PEN SQ-INSULIN SCH ×4 (07:00→20:12)
[2020-04-20] MEDS: BUPROPION 75 MG TABLET PO SCH ×2 (08:06→20:10)
[2020-04-20] MEDS: SENNA/DOCUSATE TABLET PO SCH (08:06)
[2020-04-20] MEDS: CHOLECALCIFEROL 5,000u TAB PO SCH (08:06)
[2020-04-20] MEDS: SEVELAMER CARBONATE 800MG TAB PO SCH ×3 (08:06→16:41)
[2020-04-20] MEDS: ASPIRIN 81 MG TABLET EC PO SCH (08:06)
[2020-04-20] MEDS: LISINOPRIL 10 MG TABLET PO SCH (08:07)
[2020-04-20] MEDS: LAMOTRIGINE 25 MG TABLET PO SCH (08:07)
[2020-04-20] MEDS: ESCITALOPRAM 10MG TABLET PO SCH (08:07)
[2020-04-20] MEDS: SODIUM CHLORIDE FLUSH 10ML SYR IVF SCH ×2 (08:07→20:11)
[2020-04-20] MEDS: MULTIVITAMINS/MINERALS TABLET PO SCH (08:07)
[2020-04-20] MEDS ORDERED: AMOX250S20 PO (10:14)
[2020-04-20 12:06] VITALS: BP 138/74
[2020-04-20 18:38] VITALS: BP 149/67
[2020-04-20] MEDS: MELATONIN 3 MG TABLET PO PRN (20:10)
[2020-04-20] MEDS: ATORVASTATIN 40 MG TABLET PO SCH (20:10)
[2020-04-20] MEDS: AMPICILLIN 1 GM in SODIUM CHLORIDE 0.9% 100 ML IV SCH (20:11)
[2020-04-20] MEDS: INSULIN GLARGINE 100 UNITS/ML, PEN SQ-INSULIN SCH (20:12)
[2020-04-21 00:51] VITALS: BP 137/61
[2020-04-21] MEDS: GENTAMICIN CRM 0.1%, 30GM TP SCH ×2 (05:30→11:00)
[2020-04-21] MEDS: metroNIDAZOLE 500 MG TABLET PO SCH (05:30)
[2020-04-21] MEDS: DOCUSATE 100 MG CAPSULE PO SCH ×2 (05:30→11:00)
[2020-04-21 06:10] LABS: BASOPHILS # (AUTO) 0.02 x10^3/uL (0-0.1); BASOPHILS % (AUTO) 0 % (0-1); EOSINOPHILS # (AUTO) 0.33 x10^3/uL (0-0.4); EOSINOPHILS % (AUTO) 5 % (1-7); LYMPHOCYTES # (AUTO) 2.54 x10^3/uL (1-3.4); LYMPHOCYTES % (AUTO) 38 % (22-44); MD NO; MEAN CORPUSCULAR HEMOGLOBIN 30.1 pg (27.0-34.8); MEAN CORPUSCULAR HGB CONC 32.1 g/dL (32.4-35.8); MEAN CORPUSCULAR VOLUME 93.8 fL (80-100); MEAN PLATELET VOLUME 7.8 fL (7.4-10.4); MONOCYTES # (AUTO) 0.42 x10^3/uL (0.2-0.8); MONOCYTES % (AUTO) 6 % (2-9); NEUTROPHILS # (AUTO) 3.45 x10^3/uL (1.8-6.8); NEUTROPHILS % (AUTO) 51 % (42-75); PLATELET COUNT 395 x10^3/uL (130-400); RED CELL DISTRIBUTION WIDTH 15.9 % (9.6-15.2)
[2020-04-21 06:12] LABS: ALBUMIN 2.5 g/dL (3.4-5.0); ANION GAP 8 mmol/L (5-15); CALCIUM 8.4 mg/dL (8.5-10.1); CHLORIDE 101 mmol/L (98-107)
[2020-04-21 06:13] LABS: CREATININE 6.12 mg/dL (0.55-1.02)
[2020-04-21] MEDS ORDERED: ALENDRONATE 70 MG TABLET PO SCH (06:30)
[2020-04-21 06:50] VITALS: BP 122/60
[2020-04-21] MEDS: INSULIN LISPRO 100 UNITS/ML, PEN SQ-INSULIN SCH ×2 (07:00→11:00)
[2020-04-21] MEDS: LISINOPRIL 10 MG TABLET PO SCH (08:11)
[2020-04-21] MEDS: ASPIRIN 81 MG TABLET EC PO SCH (08:11)
[2020-04-21] MEDS: BUPROPION 75 MG TABLET PO SCH (08:11)
[2020-04-21] MEDS: MULTIVITAMINS/MINERALS TABLET PO SCH (08:11)
[2020-04-21] MEDS: CHOLECALCIFEROL 5,000u TAB PO SCH (08:12)
[2020-04-21] MEDS: SENNA/DOCUSATE TABLET PO SCH (08:12)
[2020-04-21] MEDS: SEVELAMER CARBONATE 800MG TAB PO SCH ×2 (08:12→11:00)
[2020-04-21] MEDS: LAMOTRIGINE 25 MG TABLET PO SCH (08:12)
[2020-04-21] MEDS: ESCITALOPRAM 10MG TABLET PO SCH (08:12)
[2020-04-21] MEDS: SODIUM CHLORIDE FLUSH 10ML SYR IVF SCH (08:12)
== END 2020-04-21 11:25 | disposition home or self-care (01) | DRG 602 ==
LOC: ED 17:16 → EDIP 18:11 → 4WST 20:03 → DCLOUNGE 04-21 11:15
PROVIDERS: ADMIT Family Medicine; ATTEND Family Medicine
PROC: 5A1D70Z Performance of Urinary Filtration, Intermittent, Less than 6 Hours Per Day (ICD-10-PCS; principal; 2020-04-17)
PROC: 5A1D70Z Performance of Urinary Filtration, Intermittent, Less than 6 Hours Per Day (ICD-10-PCS; 2020-04-19)
DX: L03.311 Cellulitis of abdominal wall (principal); N18.6 End stage renal disease; I12.0 Hypertensive chronic kidney disease with stage 5 chronic kidney disease or end stage renal disease; E87.1 Hypo-osmolality and hyponatremia; E87.3 Alkalosis; N39.0 Urinary tract infection, site not specified; E11.22 Type 2 diabetes mellitus with diabetic chronic kidney disease; D72.829 Elevated white blood cell count, unspecified; D63.1 Anemia in chronic kidney disease; N25.0 Renal osteodystrophy; J44.9 Chronic obstructive pulmonary disease, unspecified; E78.5 Hyperlipidemia, unspecified; E87.6 Hypokalemia; M81.0 Age-related osteoporosis without current pathological fracture; R32 Unspecified urinary incontinence; K59.00 Constipation, unspecified; Z66 Do not resuscitate; Z79.4 Long term (current) use of insulin; Z82.49 Family history of ischemic heart disease and other diseases of the circulatory system; Z87.891 Personal history of nicotine dependence; Z83.3 Family history of diabetes mellitus; Z90.710 Acquired absence of both cervix and uterus; Z99.2 Dependence on renal dialysis; E11.649 Type 2 diabetes mellitus with hypoglycemia without coma; Z53.9 Procedure and treatment not carried out, unspecified reason
CPT/HCPCS: 36415; 74176; 80048; 80053; 80069; 81001; 82947; 82962; 83036; 83605; 83735; 85025; 85610; 85730; 86705; 86706; 87040; 87070; 87077; 87086; 87186; 87205; 87340; 89051; 90935; 93005; 96374; 96375; G0378; J0290; J0882; J2543; J3370; J1200; J1815; J2270

== ENCOUNTER 2020-09-18 19:20 | Emergency (ER) | payer MEDICARE ==
[~2020-09-18] VITALS: Ht 167.6 cm; Wt 93.0 kg
[~2020-09-18 19:20] MED LIST changes: -ALEN70TA6 PO; +ALEN70TA66 PO; +AMLO-211 PO; -AMLO10TA8 PO; +AMOX250S20 PO
--- NOTE | 2020-09-18 19:58 | NUR ---
XRAY AT BEDSIDE
[2020-09-18 20:21] LABS: BASOPHILS % (AUTO) 1 % (0-1); EOSINOPHILS % (AUTO) 2 % (1-7); LYMPHOCYTES % (AUTO) 31 % (22-44); MEAN CORPUSCULAR HEMOGLOBIN 29.3 pg (27.0-34.8); MEAN CORPUSCULAR HGB CONC 32.7 g/dL (32.4-35.8); MEAN PLATELET VOLUME 7.9 fL (7.4-10.4); MONOCYTES % (AUTO) 7 % (2-9); NEUTROPHILS % (AUTO) 59 % (42-75); PLATELET COUNT 205 x10^3/uL (130-400); RED BLOOD COUNT 2.66 x10^6/uL (3.82-5.3); RED CELL DISTRIBUTION WIDTH 18.8 % (9.6-15.2)
[2020-09-18 20:23] LABS: MD NO
[2020-09-18 20:34] LABS: ALANINE AMINOTRANSFERASE 72 U/L (12-78); ALBUMIN 3.4 g/dL (3.4-5.0); ANION GAP 6 mmol/L (5-15); CALCIUM 8.4 mg/dL (8.5-10.1); CHLORIDE 97 mmol/L (98-107); CREATININE 4.84 mg/dL (0.55-1.02)
[2020-09-18 20:36] LABS: ALKALINE PHOSPHATASE 101 U/L (45-117); BILIRUBIN,TOTAL 0.8 mg/dL (0.2-1.0); TOTAL PROTEIN 7.2 g/dL (6.4-8.2)
--- NOTE | 2020-09-18 21:22 | NUR ---
CORRIE SWAB WALKED TO LAB PT AWARE OF POC TO DC HOME AT THIS TIME, GETTING DRESSED
[2020-09-18 21:44] VITALS: BP 153/83
--- NOTE | 2020-09-18 21:45 | NUR ---
Patient/Caregiver given discharge instructions and they have confirmed that they understand the instructions. Patient ambulatory with steady gait.
== END 2020-09-18 21:46 | disposition home or self-care (01) ==
LOC: ED 21:00
DX: U07.1 COVID-19 (principal); J18.9 Pneumonia, unspecified organism; R51.9 Headache, unspecified; R50.9 Fever, unspecified; R06.02 Shortness of breath; R05 Cough; R53.83 Other fatigue; M79.10 Myalgia, unspecified site; I10 Essential (primary) hypertension; E11.9 Type 2 diabetes mellitus without complications; Z87.891 Personal history of nicotine dependence
CPT/HCPCS: 36415; 71045; 80053; 85025; 87635; 93005; 99285

== ENCOUNTER 2020-09-23 13:37 | Observation (INO) | payer MEDICARE ==
[~2020-09-23] VITALS: Ht 167.6 cm; Wt 94.6 kg
[2020-09-23 16:30] LABS: ALANINE AMINOTRANSFERASE 39 U/L (12-78); ANION GAP 8 mmol/L (5-15); CALCIUM 8.1 mg/dL (8.5-10.1); CHLORIDE 102 mmol/L (98-107); CREATININE 8.75 mg/dL (0.55-1.02)
[2020-09-23 16:32] LABS: ALKALINE PHOSPHATASE 87 U/L (45-117); BILIRUBIN,TOTAL 0.4 mg/dL (0.2-1.0); TOTAL PROTEIN 6.5 g/dL (6.4-8.2)
[2020-09-23 16:48] LABS: BASOPHILS % (AUTO) 1 % (0-1); EOSINOPHILS % (AUTO) 4 % (1-7); LYMPHOCYTES % (AUTO) 38 % (22-44); MEAN CORPUSCULAR HGB CONC 32.5 g/dL (32.4-35.8); MEAN PLATELET VOLUME 8.2 fL (7.4-10.4); MONOCYTES % (AUTO) 7 % (2-9); NEUTROPHILS % (AUTO) 51 % (42-75); PLATELET COUNT 212 x10^3/uL (130-400); RED BLOOD COUNT 2.38 x10^6/uL (3.82-5.3)
[2020-09-23 16:57] LABS: MD NO
[2020-09-23] MEDS ORDERED: POLYETHYLENE GLYCOL 17 GM PACKET PO PRN (18:00)
[2020-09-23] MEDS ORDERED: BISACODYL 10 MG SUPP PR PRN (18:00)
[2020-09-23] MEDS ORDERED: ACETAMINOPHEN 325 MG TABLET PO PRN (18:00)
[2020-09-23] MEDS ORDERED: GUAIFENESIN/DM 200-20MG, 10ML UDC PO PRN (18:00)
[2020-09-23] MEDS ORDERED: MELATONIN 5 MG TABLET PO PRN (18:00)
[2020-09-23] MEDS ORDERED: ALENDRONATE 70 MG TABLET PO SCH (18:00)
[2020-09-23] MEDS ORDERED: SEVELAMER CARBONATE 800MG TAB PO PRN (18:30)
[2020-09-23] MEDS ORDERED: ATORVASTATIN 40 MG TABLET ONE (18:40)
[2020-09-23] MEDS: SEVELAMER CARBONATE 800MG TAB PO SCH (19:27)
[2020-09-23] MEDS: BUPROPION 75 MG TABLET PO SCH (19:27)
[2020-09-23] MEDS: SODIUM CHLORIDE FLUSH 10ML SYR IVF SCH (19:27)
[2020-09-23] MEDS: ESCITALOPRAM 10MG TABLET PO SCH (19:30)
[2020-09-23] MEDS: INSULIN LISPRO 100 UNITS/ML, PEN SQ-INSULIN SCH (19:30)
[2020-09-23] MEDS ORDERED: INSULIN GLARGINE 100 UNITS/ML, PEN SQ-INSULIN SCH (21:00)
[2020-09-23] MEDS ORDERED: DOCUSATE 100 MG CAPSULE PO SCH (21:00)
[2020-09-23] MEDS ORDERED: ATORVASTATIN 40 MG TABLET PO SCH (21:00)
--- NOTE | 2020-09-23 21:12 | NUR ---
Rec'd report from Alphonso LAYTON. Patient resting comfortably
[2020-09-24 04:43] LABS: BASOPHILS % (AUTO) 0 % (0-1); EOSINOPHILS % (AUTO) 4 % (1-7); LYMPHOCYTES % (AUTO) 45 % (22-44); MEAN CORPUSCULAR HGB CONC 33.1 g/dL (32.4-35.8); MEAN PLATELET VOLUME 7.9 fL (7.4-10.4); MONOCYTES % (AUTO) 8 % (2-9); NEUTROPHILS % (AUTO) 43 % (42-75); PLATELET COUNT 221 x10^3/uL (130-400); RED BLOOD COUNT 2.45 x10^6/uL (3.82-5.3); RED CELL DISTRIBUTION WIDTH 20.2 % (9.6-15.2)
[2020-09-24 04:50] LABS: MD NO
[2020-09-24 06:03] LABS: CHLORIDE 104 mmol/L (98-107)
[2020-09-24 06:04] LABS: ANION GAP 9 mmol/L (5-15); CALCIUM 8.1 mg/dL (8.5-10.1); CREATININE 9.18 mg/dL (0.55-1.02)
--- NOTE | 2020-09-24 06:54 | NUR ---
REPORT TAKEN FROM CALIN LONDON. PATIENT COVID +, ARRIVED YESTERDAY FOR DIALYSIS (SHES A 3 X A WEEK DIALYSIS PATIENT) AND MISSED HER DIALYSIS SO HER MD TOLD HER TO COME HERE.
[2020-09-24] MEDS ORDERED: ARANESP 100 MCG/ML **ESRD SQ SCH (07:30)
[2020-09-24] MEDS: SEVELAMER CARBONATE 800MG TAB PO SCH ×2 (07:31→12:00)
--- NOTE | 2020-09-24 07:32 | NUR ---
patient had to go to bathroom. got her bedside commode and helped her to it. no problems. medicated. patient reports no pain. awaiting dialysis
--- NOTE | 2020-09-24 08:39 | NUR ---
patient resting quietly
[2020-09-24] MEDS ORDERED: ASPIRIN 81 MG TABLET EC PO SCH (09:00)
[2020-09-24] MEDS ORDERED: LISINOPRIL 20 MG TABLET PO SCH (09:00)
[2020-09-24] MEDS ORDERED: LAMOTRIGINE 25 MG TABLET PO SCH (09:00)
[2020-09-24] MEDS ORDERED: CHOLECALCIFEROL 5,000u TAB PO SCH (09:00)
[2020-09-24] MEDS ORDERED: SENNA/DOCUSATE TABLET PO SCH (09:00)
--- NOTE | 2020-09-24 09:04 | NUR ---
PATIENT IN BED, CALM. NO COMPLAINTS.
[2020-09-24] MEDS: SODIUM CHLORIDE FLUSH 10ML SYR IVF SCH (09:07)
--- NOTE | 2020-09-24 09:12 | NUR ---
REQUESTED MEDS FROM PHARMACY.
[2020-09-24] MEDS ORDERED: MULTIVITS,STRESS FORMULA 1 TABLET PO SCH (09:28)
[2020-09-24] MEDS ORDERED: ASPIRIN 81 MG TABLET EC ONE (10:06)
[2020-09-24] MEDS ORDERED: SENNA/DOCUSATE TABLET ONE (10:07)
[2020-09-24] MEDS ORDERED: LISINOPRIL 20 MG TABLET ONE (10:07)
[2020-09-24] MEDS ORDERED: CHOLECALCIFEROL 5,000u TAB ONE (10:07)
--- NOTE | 2020-09-24 10:19 | NUR ---
fsbs 68
[2020-09-24] MEDS: ESCITALOPRAM 10MG TABLET PO SCH (10:21)
[2020-09-24] MEDS: BUPROPION 75 MG TABLET PO SCH (10:22)
[2020-09-24] MEDS: INSULIN LISPRO 100 UNITS/ML, PEN SQ-INSULIN SCH (10:25)
--- NOTE | 2020-09-24 10:43 | NUR ---
PATIENT GIVEN LUNCH, GOOD APPETITE.
--- NOTE | 2020-09-24 12:39 | NUR ---
REPORT FROM JOSE ANGEL
--- NOTE | 2020-09-24 12:43 | NUR ---
PATIENT REPORT GIVEN TO JEFFREY MARIE. PATIENT MOVED TO ROOM 1.
--- NOTE | 2020-09-24 13:30 | NUR ---
FAMILY BROUGHT PT FOOD. WAITING FOR DIALYSIS
--- NOTE | 2020-09-24 15:33 | NUR ---
CAN BANDER OPERATOR COMING FROM [facility], GIVEN PT WATER. PT WATCHING TV. VSS
--- NOTE | 2020-09-24 16:19 | NUR ---
POTATO INSPECTOR AT BEDSIDE.
--- NOTE | 2020-09-24 18:09 | NUR ---
DIALYSIS IN PROCESS
--- NOTE | 2020-09-24 18:57 | NUR ---
REPORT FROM CALIN CARDOZA
--- NOTE | 2020-09-24 19:14 | NUR ---
PT TO BE DISCHARGED AFTER DIALYSIS IS OVER AROUND 2030. LABOR DELIVERY RN AT BEDSIDE.
--- NOTE | 2020-09-24 20:11 | NUR ---
PT PROVIDED DINNER MEAL FROM [employer]
[2020-09-24 20:53] VITALS: BP 120/51
--- NOTE | 2020-09-24 21:17 | NUR ---
Con hewitt in ED - 09/24/20 at 2118 by PATRIC PT PROVIDED DISCHARGE PAPERWORK AND I WENT OVER IT WITH HER. PT VERBALIZED UNDERSTANDING. DAUGHTER CAME TO PICK HER UP.
--- NOTE | 2020-09-24 21:18 | NUR ---
PT PROVIDED DISCHARGE PAPERWORK AND I WENT OVER IT WITH HER. PT VERBALIZED UNDERSTANDING. DAUGHTER CAME TO PICK HER UP.
== END 2020-09-24 01:08 | disposition home or self-care (01) ==
LOC: ED 15:59 → EDIP 17:15 → INTOOBSV 17:15
PROVIDERS: ADMIT Hospitalist; ATTEND Hospitalist
DX: U07.1 COVID-19 (principal); I12.0 Hypertensive chronic kidney disease with stage 5 chronic kidney disease or end stage renal disease; E11.22 Type 2 diabetes mellitus with diabetic chronic kidney disease; N18.6 End stage renal disease; D63.1 Anemia in chronic kidney disease; M81.0 Age-related osteoporosis without current pathological fracture; E78.5 Hyperlipidemia, unspecified; J44.9 Chronic obstructive pulmonary disease, unspecified; L98.8 Other specified disorders of the skin and subcutaneous tissue; F32.9 Major depressive disorder, single episode, unspecified; Z79.82 Long term (current) use of aspirin; Z79.899 Other long term (current) drug therapy; Z87.891 Personal history of nicotine dependence; Z90.710 Acquired absence of both cervix and uterus; Z99.2 Dependence on renal dialysis
CPT/HCPCS: 36415; 80048; 80053; 82962; 85025; 99284; G0378; J1815; 90935; 96372; 99285; U0003

== ENCOUNTER 2020-10-10 18:33 | Emergency (ER) | payer MEDICARE ==
[~2020-10-10] VITALS: Ht 167.6 cm; Wt 91.5 kg
[2020-10-10 19:16] LABS: BASOPHILS % (AUTO) 1 % (0-1); EOSINOPHILS % (AUTO) 0 % (1-7); LYMPHOCYTES % (AUTO) 12 % (22-44); MEAN CORPUSCULAR HEMOGLOBIN 33.6 pg (27.0-34.8); MEAN CORPUSCULAR HGB CONC 33.1 g/dL (32.4-35.8); MEAN PLATELET VOLUME 8.1 fL (7.4-10.4); MONOCYTES % (AUTO) 5 % (2-9); NEUTROPHILS % (AUTO) 82 % (42-75); PLATELET COUNT 322 x10^3/uL (130-400); RED BLOOD COUNT 2.48 x10^6/uL (3.82-5.3); RED CELL DISTRIBUTION WIDTH 21.5 % (9.6-15.2)
[2020-10-10 19:23] LABS: ANION GAP 7 mmol/L (5-15); CALCIUM 8.6 mg/dL (8.5-10.1); CHLORIDE 97 mmol/L (98-107); CREATININE 5.72 mg/dL (0.55-1.02)
[2020-10-10 19:52] LABS: MD MORPH REVIEW ONLY
[2020-10-10 19:54] LABS: ANISOCYTOSIS 1+; OVALOCYTES 1+; POLYCHROMASIA 1+
[2020-10-10 19:55] LABS: <PLATELET ESTIMATE> ADEQUATE; <PLT MORPHOLOGY> NORMAL PLT MORPH
--- NOTE | 2020-10-10 22:46 | NUR ---
PATIENT WHEELED BACK FROM LOBBY WITH CHIEF C/O POSSIBLE BOWEL OBSTRUCTION. PER PATIENT'S DAUGHTER AT BEDSIDE, PATIENT FELL 2 WEEKS AGO AFTER HAVING COVID. PATIENT'S DAUGHTER STATES PATIENT HAS CONTUSIONS ON BOTH SIDES OF HER RIBS, AND IT HAS BEEN DIFFICULT FOR PATIENT TO PUSH AND HAVE A BM. PER PATIENT LAST BM POSSIBLY 5 DAYS AGO. PATIENT'S DAUGHTER REPORTS PATIENT IS NAUSEAUS AND VOMITING UP BILE. PATIENT HAS HX OF CHRONIC CONSTIPATION, TAKES LACTULOSE AT HOME. PATIENT'S DAUGHTER STATES SHE INCREASED LACTULOSE AT HOME AND GAVE PATIENT ENEMA TODAY WITH NO RELIEF. PATIENT IS HAVING ABD PAIN, AND HAS HEMMHROIDS WHICH MAKES SITTING FOR A BM DIFFICULT. NO SIGNS OF ACUTE DISTRESS, CONNECTED TO VITALS MACHINE, SIDE RAILS UP X2, CALL LIGHT WITHIN REACH.
[2020-10-10] MEDS ORDERED: SODIUM CHLORIDE 0.9% 1,000ML IVBOLUS ONE (23:00)
[2020-10-10] MEDS ORDERED: SODIUM CHLORIDE FLUSH 10ML SYR IVF ONE ×2 (23:00→23:30)
[2020-10-10] MEDS ORDERED: ONDANSETRON 2MG/ML, 2ML IVPush ONE (23:30)
--- NOTE | 2020-10-10 23:33 | NUR ---
PATIENT TO CT SCAN.
[2020-10-10] MEDS ORDERED: ONDANSETRON 2MG/ML, 2ML ONE (23:48)
[2020-10-11] MEDS ORDERED: PROPOFOL 10 MG/ML, 20ML IVPush ONE (00:30)
[2020-10-11] MEDS ORDERED: PROPOFOL 10 MG/ML, 20ML ONE (01:01)
--- NOTE | 2020-10-11 01:43 | NUR ---
LATE ENTRY SUMMARY NOTE: REPORT FROM CALIN KHOURY. THIS RN PROVIDED KATHY CARE BEFORE PROCEDURE FOR FECAL DISIMPATION. PT NOW RESTING COMFORTABLY IN BED. NADN. DAUGHTER BACK AT BEDSIDE. REPORT TO CALIN CHAVES.
--- NOTE | 2020-10-11 01:57 | NUR ---
REPORT FROM NESTOR RN. PT BACK TO BASELINE PER PREVIOUS RN. DAUGHTER AT [facility]. VSS. PT HAS NO NEEDS AT THIS TIME. CALL LIGHT IN REACH
[2020-10-11 02:08] VITALS: BP 163/59
--- NOTE | 2020-10-11 02:27 | NUR ---
Caregiver given discharge instructions and they have confirmed that they understand the instructions. Patient taken out by wheelchair.
== END 2020-10-11 02:30 | disposition home or self-care (01) ==
LOC: ED 23:44
DX: K56.41 Fecal impaction (principal); R10.84 Generalized abdominal pain; R11.2 Nausea with vomiting, unspecified; I10 Essential (primary) hypertension; E11.9 Type 2 diabetes mellitus without complications; Z99.2 Dependence on renal dialysis; Z87.891 Personal history of nicotine dependence
CPT/HCPCS: 36415; 74021; 74176; 80048; 85025; 96361; 96374; 99285; J2405; J7030